=== PATIENT | female | born 1945 | race Caucasian/White ===

== ENCOUNTER 2017-07-11 15:52 | Inpatient (IN) ==
[2017-07-11] MEDS ORDERED: *HR* Adenosine 6 MG/2 ML VIAL IVP ONE ×2 (16:00→17:24)
[2017-07-11] MEDS ORDERED: Aspirin 325 MG TABLET PO ONE (16:00)
[2017-07-11] MEDS ORDERED: 0.9 % Sodium Chloride 1,000 ML ONE (16:06)
[2017-07-11 17:03] LABS: Basophils % 0.4 %; Eosinophils # 0.1 K/mcL (0.0-0.6); Eosinophils % 1.2 %; Hematocrit 48.2 % (35.3-44.9); Hemoglobin 15.1 g/dL (11.5-15.4); Immature Granulocytes % 0.2 % (0-4); Lymphocytes # 2.6 K/mcL (0.6-4.6); Lymphocytes % 29.1 %; Mean Corpuscular HGB Conc 31.3 g/dL (31.6-35.5); Mean Corpuscular Hemoglobin 26.7 pg (28.0-33.3); Mean Corpuscular Volume 85.2 fL (83.0-100.0); Monocytes # 0.8 K/mcL (0.0-1.3); Monocytes % 8.3 %; Neutrophils # 5.5 K/mcL (1.6-8.9); Platelet Count 208 K/mcL (140-400); Red Blood Count 5.66 M/mcL (3.82-4.97); Red Cell Distribution Width 14.4 % (11.5-14.5); Segmented Neutrophils % 60.8 %
[2017-07-11 17:07] LABS: INR 3.9
[2017-07-11 17:10] LABS: Activated Partial Thrombo Time 48.3 Seconds (26.0-36.0)
[2017-07-11 17:13] LABS: Prothrombin Time 44.1 Seconds (9.4-12.1)
[2017-07-11 17:17] LABS: BUN/Creatinine Ratio 13 (6-26); Blood Urea Nitrogen 13 mg/dL (7-20); Carbon Dioxide 20 mEq/L (19-29); Chloride 108 mEq/L (98-109); Glucose 89 mg/dL (70-99); Magnesium 1.7 mg/dL (1.6-2.6); Osmolality,Calculated 292 (280-300); Potassium 3.8 mEq/L (3.5-4.5); Sodium 141 mEq/L (136-145); eGFR For African Americans > 60 (> 60); eGFR For Non-African Americans 56 (> 60)
--- NOTE | 2017-07-11 17:39 | Emergency Department Note ---
Disposition Clinical Impression: Palpitations Atrial flutter Qualifiers: Atrial flutter type: typical Qualified Code(s): I48.3 - Typical atrial flutter Disposition: Admitted As Inpatient Condition: Good Forms: ED Satisfaction Letter Time of Disposition: 17:49 Arrhythmia/Palpitations HPI - General Chief Complaint: ED Arrhythmia/Palpitations Stated Complaint: afib Time Seen by Provider: 07/11/17 15:59 Source: EMS Limitations: no limitations Nursing Notes Reviewed: Yes Vital Signs Reviewed: Yes - History of Present Illness HPI Narrative: Patient presents her primary care office today for evaluation of tachycardia. They did an EKG later today for screening evaluation recommended she come to the emergency room. Onset (ago): Just LEADITE MAN Duration: constant Severity: moderate Context: occurred during rest Arrhythmia History: atrial fibrillation, SVT, on anti-coagulants, history of ablation, history of electrical cardioversion, prior evaluation Associated symptoms: Reports: denies other symptoms Treatments prior to arrival: vagal maneuvers - Related Data Home Medications Medication Instructions Recorded Confirmed Aspirin [Lo-Dose Aspirin EC] 81 mg PO DAILY 05/16/17 05/16/17 Cholecalciferol (Vitamin D3) 2,000 unit PO DAILY 05/16/17 05/16/17 [Vitamin D] Lisinopril [Zestril] 20 mg PO DAILY 05/16/17 05/16/17 Magnesium Oxide [Magnesium] 500 mg PO DAILY 05/16/17 05/16/17 Multivitamin [Multivitamins] 1 tab PO DAILY 05/16/17 05/16/17 Simvastatin [Zocor] 20 mg PO HS 05/16/17 05/16/17 Warfarin Sodium [Coumadin] 6 mg PO SUMOWEFR 07/11/17 07/11/17 Warfarin [Coumadin] 4 mg PO TUTHSA 07/11/17 07/11/17 Allergies Allergy/AdvReac Type Severity Reaction Status Date / Time codeine AdvReac Flushing Verified 07/11/17 16:37 All systems ED: reviewed and negative except as stated. Review of Systems: As Per HPI Constitutional: Denies: fever, chills Cardiovascular: Reports: palpitations. Denies: chest pain, dyspnea on exertion , orthopnea, edema Respiratory: Denies: cough, dyspnea Gastrointestinal: Denies: abdominal pain, nausea, vomiting, diarrhea Genitourinary: Denies: urgency, dysuria Musculoskeletal: Denies: back pain, neck pain Neurological: Denies: headache Psychiatric: Denies: anxiety, depression Allergic/Immunologic: Denies: facial swelling Past Medical History - Past Medical History Attestation: Yes The following information was validated with the patient. Source: patient Medical history: Reports: atrial fibrillation, DVT, hyperlipidemia, hypertension Psychiatric history: Reports: no psych history - Social History Smoking Status: Never smoker Smokeless Tobacco Status: No Alcohol use: Reports: none Drug use: Reports: none Physical Exam - General General appearance: alert, in no apparent distress - Head Head exam: atraumatic, normocephalic, normal inspection - Neck Neck exam: Present: normal inspection, full ROM, trachea midline - Chest Chest inspection: Present: normal inspection, symmetric chest wall rise - Respiratory Respiratory exam: Present: normal lung sounds bilaterally. Absent: respiratory distress, wheezes, accessory muscle use - Cardiovascular Cardiovascular exam: Present: normal rhythm, tachycardia, normal heart sounds - Abdominal Exam Abdominal exam: Present: soft, Non-Tender, normal bowel sounds. Absent: tenderness, distention, guarding, rebound, rigidity, Lucio's sign, Rovsing's sign, tenderness at McBurney's Point - Extremities Exam Extremities exam: Present: normal inspection, full ROM, normal capillary refill. Absent: tenderness, pedal edema - Back Exam Back exam: Present: normal inspection - Neurological Exam Neurological exam: Present: alert, oriented X3, CN II-XII intact, normal gait - Skin Skin exam: Present: warm, dry, intact, normal color Course Course Narrative: Patient seen and examined the time of arrival by EMS. See history of present illness. Very pleasant 72-year-old female presents emergency room for primary care provider's office today for evaluation of palpitations. Denied any other symptoms leading up to today's events. She was seen there for just a basic outpatient evaluation. She has a history of walking Parkinson White, atrial fibrillation, she also has had open heart surgery as well as an ring placed in the heart around one of the valves. She is on Coumadin. Her most recent INR was 3.32 days ago. Patient denies any chest pain shortness of breath headache vision changes nausea vomiting or diarrhea. Denies fevers chills at this time. She has not had any recent trauma or medication changes. Denies any other symptoms on presentation here. Physical exam patient is resting comfortably in the bed no distress lungs are clear heart is tachycardic but regular. Abdomen is soft nontender nondistended no guarding or rigidity no peritoneal symptoms. IV access was obtained by EMS. Immediate EKG was collected and reviewed compared to the EKG from primary care provider's office. The rhythm itself appears to be SVT at this time based on normal morphology with what looks like regular rhythm. Patient is set up to do adenosine. Single IV obtained in the left upper extremity. 6 mg of adenosine and then 12 proportion. There is appropriate responsible time the patient became immediately tachycardic echo after the event. The rhythm looked like sinus rhythm as an underlying pathology after the pause was noted. Labs including coagulation studies CBC electrolytes are ordered at this time. Patient is hemodynamically stable showing no acute signs of decompensation. Single dose of 10 mg of IV Cardizem were given by bolus. Patient's rate converted within 30 seconds again the medication. Her new rate is in the 80s. It appears to be a flutter. Patient is Misha anticoagulated. Disposition pending laboratory workup and chest x- ray. Patient will most likely need admission for definitive evaluation and management. We will continue to monitor until admission process is completed. - Reevaluation(s) Reevaluation #1: Since INR is significantly elevated at 3.9. Otherwise rest of her laboratory workup was completely benign. We will monitor here as consultations placed at the hospitals. Patient does follow up with Dr. Ceja the vice president planning. No need for serial consultation replaced at this time. Rhythm is controlled. Cardizem drip ordered at this time as needed but currently she is stayed with a normal rhythm after the single bolus of Cardizem was given. There is no need for anticoagulation this time considering her INR is 3.9. We will continue to monitor him into the admission process is completed Time: 17:46 Reevaluation #2: Patient discussed with the hospitalist Dr. viveros. Review the presentation symptoms medical history in detail. Initially thought to the patient said that she had both compartments and white but she does not. Patient responded to Cardizem appropriately. Patient is otherwise stable. Will be admitted at this time for evaluation. No other recommendations this time except to hold on a Cardizem drip until her evaluated. Time: 18:11 Vital Signs Pulse Rate 168 07/11/17 16:35 Respiratory Rate 16 07/11/17 16:35 Blood Pressure 157/92 07/11/17 16:35 O2 Sat by Pulse Oximetry 98 07/11/17 16:35 Temperature 98 F 07/11/17 16:36 Pulse Rate 78 07/11/17 16:59 Respiratory Rate 16 07/11/17 16:59 Blood Pressure 165/88 07/11/17 16:59 O2 Sat by Pulse Oximetry 99 07/11/17 16:59 Arrhythmia/Palpitations - [facility] Narrative Medical decision making narrative: A flutter, supraventricular tachycardia, cardiac arrhythmia - Medical Records Medical records reviewed: Yes I reviewed the patient's medical records. - Lab Data Lab results reviewed: Yes I reviewed the patient's lab results. Result diagrams: 07/11/17 16:51 07/11/17 16:51 Lab Results 07/11/17 07/11/17 07/11/17 Range/Units 16:51 16:51 16:51 WBC 9.0 (4.3-11.1) K/mcL RBC 5.66 H (3.82-4.97) M/mcL Hgb 15.1 (11.5-15.4) g/dL Hct 48.2 H (35.3-44.9) % MCV 85.2 (83.0-100.0) fL MCH 26.7 L (28.0-33.3) pg MCHC 31.3 L (31.6-35.5) g/dL RDW 14.4 (11.5-14.5) % Plt Count 208 (140-400) K/mcL MPV 11.0 (9.4-12.4) fL Immature Gran % 0.2 (0-4) % Seg Neutrophils % 60.8 % Lymphocytes % 29.1 % Monocytes % 8.3 % Eosinophils % 1.2 % Basophils % 0.4 % Neutrophils # 5.5 (1.6-8.9) K/mcL Lymphocytes # 2.6 (0.6-4.6) K/mcL Monocytes # 0.8 (0.0-1.3) K/mcL Eosinophils # 0.1 (0.0-0.6) K/mcL Basophils # 0.0 (0.0-0.2) K/mcL PT 44.1 H* (9.4-12.1) Seconds INR 3.9 APTT 48.3 H (26.0-36.0) Seconds Sodium 141 (136-145) mEq/L Potassium 3.8 (3.5-4.5) mEq/L Chloride 108 (98-109) mEq/L Carbon Dioxide 20 (19-29) mEq/L BUN 13 (7-20) mg/dL Creatinine 0.98 (0.57-1.11) mg/dL Est GFR ( Amer) > 60 (> 60) Est GFR (Non-Af Amer) 56 L (> 60) BUN/Creatinine Ratio 13 (6-26) Glucose 89 (70-99) mg/dL Calculated Osmolality 292 (280-300) Calcium 10.0 (8.6-10.8) mg/dL Magnesium 1.7 (1.6-2.6) mg/dL Troponin I (0-0.03) ng/mL TSH 1.541 (0.350-4.840) mcIU/mL 07/11/17 Range/Units 16:51 WBC (4.3-11.1) K/mcL RBC (3.82-4.97) M/mcL Hgb (11.5-15.4) g/dL Hct (35.3-44.9) % MCV (83.0-100.0) fL MCH (28.0-33.3) pg MCHC (31.6-35.5) g/dL RDW (11.5-14.5) % Plt Count (140-400) K/mcL MPV (9.4-12.4) fL Immature Gran % (0-4) % Seg Neutrophils % % Lymphocytes % % Monocytes % % Eosinophils % % Basophils % % Neutrophils # (1.6-8.9) K/mcL Lymphocytes # (0.6-4.6) K/mcL Monocytes # (0.0-1.3) K/mcL Eosinophils # (0.0-0.6) K/mcL Basophils # (0.0-0.2) K/mcL PT (9.4-12.1) Seconds INR APTT (26.0-36.0) Seconds Sodium (136-145) mEq/L Potassium (3.5-4.5) mEq/L Chloride (98-109) mEq/L Carbon Dioxide (19-29) mEq/L BUN (7-20) mg/dL Creatinine (0.57-1.11) mg/dL Est GFR ( Amer) (> 60) Est GFR (Non-Af Amer) (> 60) BUN/Creatinine Ratio (6-26) Glucose (70-99) mg/dL Calculated Osmolality (280-300) Calcium (8.6-10.8) mg/dL Magnesium (1.6-2.6) mg/dL Troponin I 0.00 (0-0.03) ng/mL TSH (0.350-4.840) mcIU/mL - Radiology Data Radiology results reviewed: Yes I reviewed the patient's radiology results. Chest x-ray still shows no acute pathology - EKG Data EKG attestation: Yes I reviewed and interpreted this EKG. Rhythm: SVT [place]/QRS: normal When compared to previous EKG there are: changes noted Interpretation: other (Repeat EKG completed after Cardizem shows a flutter with 3-1 conduction) Critical Care Time Critical Care Time: Yes Total Critical Care Time: 45 Attestation: Critical care performed: Time is exclusive of separately billable procedures. Time includes: direct patient care, patient reassessment, coordination of patient care, interpretation of data (laboratory data, radiology data, and respiratory data), review of patient's medical records, medical consultation and documentation of patient care. Procedures included in critical care time: Procedures excluded from critical care time:
[2017-07-11 17:42] LABS: Thyroid Stimulating Hormone 1.541 mcIU/mL (0.350-4.840)
[2017-07-11 18:15] LABS: Bilirubin,Urine Negative (Negative); Blood,Urine Negative (Negative); Clarity,Urine Clear (Clear); Color,Urine Yellow (Yellow); Glucose,Urine (UA) Normal (Normal); Ketones,Urine Trace mg/dL (Negative); Leukocyte Esterase,Urine Trace (Negative); Nitrite,Urine Negative (Negative); PH,Urine 6.5 pH Units (5.0-8.0); Protein,Urine Negative (Neg-Trace); Specific Gravity,Urine 1.009 (1.010-1.025); Urobilinogen,Urine Normal (Normal)
[2017-07-11 18:18] LABS: Bacteria,Urine None Seen per hpf (None-Few); Hyaline Casts,Urine None Seen per lpf (None-Few); RBC,Urine 0-3 per hpf (0-3); Squamous Epithelial Cell,Urine None Seen per lpf (None-Few); WBC,Urine 0-3 per hpf (0-3)
[2017-07-11] MEDS ORDERED: Acetaminophen 325 MG TABLET PO PRN (20:04)
--- NOTE | 2017-07-11 20:04 | Internal Med History&Physical ---
<Cintia Dean - Last Filed: 07/11/17 20:42> Date of Encounter: 07/11/17 Time of Encounter: 19:20 Assessment and Plan (1) Atrial flutter with rapid ventricular response Current visit: Yes Status: Acute - Initial EKG in ED showed regular SVT at rate of 168. - The EKG after first dose of adenosine showed atrial flutter at rate of 83. - Known PMH of atypical atrial flutter s/p intraop ablation 07/2014 and atrial fibrillation s/p 3 cardioversions currently on Coumadin. 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 - Hemodynamically stable with HR of 80s at this time. - Discontinue Cardizem drip. - Start Cardizem 10 mg IV q6H prn HR > 120. - Obtain echocardiogram for further evaluation. - Will consult cardiology and appreciate further evaluation and recommendation. - Continue to monitor with telemetry. (2) Supratherapeutic INR Current visit: Yes Status: Acute - INR 3.9 on admission. - On Coumadin at home for A-flutter/A-fib. Will hold Coumadin for now. - Continue to monitor INR. (3) Hypertension Current visit: Yes Status: Chronic - Continue home dose lisinopril. Qualifiers: Hypertension type: essential hypertension Qualified Code(s): I10 - Essential (primary) hypertension (4) Hyperlipidemia Current visit: Yes Status: Chronic - Continue home statin. 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 - S/p IVC filter placed in 2013. - On Coumadin at home. INR 3.9 on admission. Will hold Coumadin for now. Internal Medicine - H&P: HPI Chief complaint: Palpitation Admitted From: Emergency Dept Plans for Post Hospital Care: Home History of present illness: Ms. 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 Patient was sent from her PCP Dr. Cameron's office to [place] ED for tachycardia at rate of 160. Patient reports having intermittent palpitation at left later chest/flank since May. It 's associated with some shortness of breath and lightheadedness but no chest pain/discomfort, syncope, edema. Patient denies nausea, vomiting, diarrhea, abdominal pain, dysuria, fever. Patient takes aspirin, simvastatin and lisinopril at home and denies taking any thyroid supplement. Patient is not on any BB or CCB at home and per patient, her old aircraft mechanic structures at [place] weaned her off from those rate-control medications. Patient's current aircraft mechanic structures is Dr. Ceja and she has scheduled appointment with him tomorrow. Patient is full code. EKG in ED showed regular SVT at rate of 168. Per ED note, patient has appropriate response after receiving adenosine 6 mg and 12 mg. Patient also received one dose of Cardizem 10 mg IV bolus and patient remains hemodynamically stable with rate of 80s since. Cardizem drip was ordered in ED and never given as patient's heart rate stays at 80s. Patient was also noted to have INR 3.9. Past Med Surg Social Fam HX - Past Medical History Source: patient, old records reviewed Medical history: atrial fibrillation, DVT, hyperlipidemia, hypertension Psychiatric history: no psych history - Past Surgical History Surgical History: orthopedic, other (Left foot surgery), other (mitral valve repair with annuloplasty and OLESYA ligation), IVC filter - Social History Smoking Status: Never smoker Smokeless Tobacco Status: No Alcohol use: none Drug use: none - Family History Father Living Status: Age at : 86 Hx Family Cardiac Disorders: Yes (Heart disease) Mother Living Status: Age at : 60 Hx Family Cancer: Yes (Colon cancer) Sister Hx Family Cancer: Yes (Cervical cancer) Brother Hx Family Cancer: Yes (Colon cancer) Internal Medicine - H&P: Meds Aspirin [Lo-Dose Aspirin EC] 81 mg PO DAILY 05/16/17 [History] Cholecalciferol (Vitamin D3) [Vitamin D] 2,000 unit PO DAILY 05/16/17 [History] Lisinopril [Zestril] 20 mg PO DAILY 05/16/17 [History] Magnesium Oxide [Magnesium] 500 mg PO DAILY 05/16/17 [History] Multivitamin [Multivitamins] 1 tab PO 3XW 05/16/17 [History] Simvastatin [Zocor] 20 mg PO HS 05/16/17 [History] Warfarin Sodium [Coumadin] 6 mg PO SUMOWEFR 07/11/17 [History] Warfarin [Coumadin] 4 mg PO TUTHSA 07/11/17 [History] Allergies codeine Adverse Reaction (Verified 07/11/17 16:37) Flushing All Systems PM: A 10-system review of systems was performed and is negative for pertinent findings except as documented above in the HPI. - Constitutional Constitutional: weight loss (3 lb since May), no anorexia, no fever(s) - EENT Eyes: no change in vision Ears: no decreased hearing Nose, mouth and throat: no dysphagia, no odynophagia - Cardiovascular Cardiovascular ROS IM: as per HPI, lightheadedness, palpitations, no chest pain , no edema, no syncope - Respiratory Respiratory: cough (with clear sputum), no dyspnea, no hemoptysis, no change in phlegm color - Gastrointestinal Gastrointestinal: no abdominal pain, no diarrhea, no hematochezia, no melena, no nausea, no vomiting - Genitourinary Genitourinary: no difficulty urinating, no dysuria, no hematuria - Musculoskeletal Musculoskeletal ROS IM: no arthralgias, no myalgias - Integumentary Integumentary IM: no pruritus, no rash - Neurological Neurological ROS: no focal weakness, no numbness, no tingling - Hematologic/Lymphatic Hematologic/Lymphatic: no easy bleeding, no easy bruising - Constitutional Vitals: Temp Pulse Resp BP Pulse Ox 98 F 78 16 148/90 99 07/11/17 16:36 07/11/17 16:59 07/11/17 19:40 07/11/17 19:40 07/11/17 16:59 General appearance: Present: cooperative, A&O X 3, no acute distress, answers questions appropriately - Head Head exam: Present: atraumatic, normocephalic - Eye Eye exam: Present: EOMI, PERRL, conjuntiva pink, sclera anicteric - Neck Neck exam general surgery: Present: supple, trachea midline. Absent: lymphadenopathy - Respiratory Respiratory exam: Present: CTAB. Absent: accessory muscle use, rales, rhonchi, wheezes - Cardiovascular Cardiovascular exam: Present: RRR, +S1, +S2. Absent: diastolic murmur, gallop, rubs, systolic murmur - GI/Abdominal GI/Abdominal exam: Present: normal bowel sounds, soft, no peritoneal signs. Absent: distended, tenderness - Extremities Exam Extremities exam: Present: warm, radial pulses palpable and symmetrical. Absent : calf tenderness, cyanotic, pedal edema - Neurological Exam Neurological exam: Present: CN II-XII intact, oriented X3, no focal deficits. Absent: pronater drift, facial droop, speech deficit - Skin Skin exam: Present: dry, intact, warm Internal Med - H&P Results - Labs CBC & Chem 7: 07/11/17 16:51 07/11/17 16:51 - EKG Data -: EKG Interpreted by Myself (Regular SVT HR 168 on initial EKG. A-flutter HR 83 after 1st dose adenosine) <Seth Kim - Last Filed: 07/11/17 23:34> Date of Encounter: 07/11/17 Internal Medicine - H&P: HPI History of present illness: Ms. Alvarenga is a 72 year old female All Systems PM: A 10-system review of systems was performed and is negative for pertinent findings except as documented above in the HPI. - Constitutional Vitals: Temp Pulse Resp BP Pulse Ox 97.7 F 84 13 162/97 97 07/11/17 21:36 07/11/17 22:24 07/11/17 21:36 07/11/17 21:36 07/11/17 21:36 Internal Med - H&P Results - Labs CBC & Chem 7: 07/11/17 16:51 07/11/17 16:51 - Attending Attestation I examined this patient and my medical decision-making was reviewed with the Resident Physician, Dr Cintia Dean. I agree with the documented findings, disposition and treatment plan as described except to the extent set forth below. My findings are summarized below: Patient presented to the hospital with palpitations. On exam she is in no acute distress. Heart is regular with normal S1 and S2 and a 3/6 systolic murmur best heard at the apex as well as a faint low pitched diastolic murmur. Lungs are clear. Extremities have no edema. Telemetry review currently shows atrial flutter with ventricular rate of 84. Plan: Monitor on telemetry, consult cardiology, continue IV diltiazem as needed for tachycardia. Currently patient is rate controlled and asymptomatic.
[2017-07-11] MEDS ORDERED: Lisinopril 20 MG TABLET PO ONE (22:09)
[2017-07-12 05:59] LABS: INR 3.5; Prothrombin Time 39.7 Seconds (9.4-12.1)
[2017-07-12 06:01] LABS: Hematocrit 43.4 % (35.3-44.9); Hemoglobin 13.7 g/dL (11.5-15.4); Mean Corpuscular HGB Conc 31.6 g/dL (31.6-35.5); Mean Corpuscular Hemoglobin 26.8 pg (28.0-33.3); Mean Corpuscular Volume 84.9 fL (83.0-100.0); Mean Platelet Volume 11.5 fL (9.4-12.4); Platelet Count 174 K/mcL (140-400); Red Blood Count 5.11 M/mcL (3.82-4.97); Red Cell Distribution Width 14.6 % (11.5-14.5)
[2017-07-12 06:09] LABS: BUN/Creatinine Ratio 12 (6-26); Blood Urea Nitrogen 10 mg/dL (7-20); Carbon Dioxide 22 mEq/L (19-29); Chloride 109 mEq/L (98-109); Glucose 89 mg/dL (70-99); Osmolality,Calculated 287 (280-300); Potassium 3.8 mEq/L (3.5-4.5); Sodium 139 mEq/L (136-145); eGFR For African Americans > 60 (> 60); eGFR For Non-African Americans > 60 (> 60)
--- NOTE | 2017-07-12 09:30 | Cardiology Consult Note ---
<Frederick Jacobs - Last Filed: 07/12/17 12:40> Date of Encounter: 07/12/17 Time of Encounter: 09:28 Assessment and Plan (1) Atrial flutter Current Visit: Yes Status: Acute EKG currently shows her to be in atrial flutter. This is common for people to go into after an ablation. She has a very extensive arrhythmia history with left lateral WPW, a fib and atypical a flutter. She is no longer in SVT after the adenosine in the ED was given and the cardizem push dose did help her a fib to be rate controlled and caused her to be changed into an a flutter rhythm. She is supratherapeutic on her warfarin so continue holding her coumadin to get her therapeutic and recommend followup with the coumadin clinic to get that back to a therapeutic level. She has been therapeutic or supratherapeutic for the last 30 days after chart review. Old EKG's were obtained and she looks to be in NSR back in May of 2016, so she is normally in a sinus rhythm. But in the past when seen in [place] she had persistent a. flutter after all her ablations and looked to be weened off of all he antiarythmics. Echo showed Decreased EF of 30% when last one in 2016 was 40-45%. There also was severe MR which was mild in 2016. 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 At 1100 Pt got up to go to the restroom had became tachycardic and back into SVT where 10mg of Cardizem were given and she is now rate controlled at 80bpm We spoke with her more about being cardioverted and she was very reluctant to have it done and wanted to try medical management first. We are going to consult EP for her. After looking at old records she has been on Cardizem, Flecanide, Amiodarone, and possibly sotalol. So with that history we feel it's best to get EP on board. (2) History of mitral valve repair Current Visit: Yes Status: Chronic Continue holding the Warfarin as she is supratherapeutic. Will review her echo to be sure there is no MR or dysfunction in the valve. (3) Hyperlipidemia Current Visit: Yes Status: Chronic Continue statin treatment. (4) Hypertension Current Visit: Yes Status: Chronic She is slightly hypertensive today. We recommend increasing her lisinopril dose and f/u with PCP to be sure her bp normalizes. Discussion w patient/family: The assessment and plan as outlined above was discussed with the patient and/or family members who expressed understanding and agreement. All questions were answered. Thank you for involving us in the care of your patient. Please call with any questions. History of Present Illness Consult date: 07/12/17 Requesting physician: Cintia Dean Consult reason: A Flutter after Adenosine conversion from SVT Chief complaint: Palpitations History of present illness: Ms. 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 She is anticoagulated with coumadin and recently has been supratherapeutic. She is seen by Dr. Ceja for Cardiology. She had a normal doctor's appointment with her PCP yesterday when they noticed she had a fast heart rate. They did an EKG which shows SVT so they transferred her to the ED. There she was in SVT and was give 6 and 12mg doses of Adenosine where she converted to Sinus rhythm then intro atrial fibrillation with RVR she was then given push dose cardizem once which caused her to be rate controlled in atrial flutter. She stated for the last few months she has had a palpation feeling in her left flank that all began since a hammer toe surgery in May. But she said they were more of a nuisance than a true pain. When talking with her today she states she has had no pain and the palpitations are gone. She said she has not had any other symptoms of chest pain, SOB, Nausea, vomiting, swelling, fevers. She cannot think of anything that has changed in her daily routine that could have caused this. She states that she feels just fine she believes that her normal rhythm she is in is a sinus rhythm. She had a scheduled appointment with Dr. Ceja for today. Past Med Surg Social Fam HX - Past Medical History Medical history: atrial fibrillation, DVT, hyperlipidemia, hypertension Psychiatric history: no psych history - Past Surgical History Surgical History: orthopedic, other, other, IVC filter - Social History Smoking Status: Never smoker Smokeless Tobacco Status: No Alcohol use: none Drug use: none - Family History Father Living Status: Age at : 86 Hx Family Cardiac Disorders: Yes (Heart disease) Mother Living Status: Age at : 60 Hx Family Cancer: Yes (Colon cancer) Sister Hx Family Cancer: Yes (Cervical cancer) Brother Hx Family Cancer: Yes (Colon cancer) Medications and Allergies Aspirin [Lo-Dose Aspirin EC] 81 mg PO DAILY 05/16/17 [History] Cholecalciferol (Vitamin D3) [Vitamin D] 2,000 unit PO DAILY 05/16/17 [History] Lisinopril [Zestril] 20 mg PO DAILY 05/16/17 [History] Magnesium Oxide [Magnesium] 500 mg PO DAILY 05/16/17 [History] Multivitamin [Multivitamins] 1 tab PO 3XW 05/16/17 [History] Simvastatin [Zocor] 20 mg PO HS 05/16/17 [History] Warfarin Sodium [Coumadin] 6 mg PO SUMOWEFR 07/11/17 [History] Warfarin [Coumadin] 4 mg PO TUTHSA 07/11/17 [History] Allergies codeine Adverse Reaction (Verified 07/11/17 16:37) Flushing All Systems Review: A 10-system review of systems was performed and is negative for pertinent findings except as documented above in the HPI. - Constitutional Constitutional: no anorexia, no chills, no daytime sleepiness, no fatigue, no fever(s), no frequent falls, no headache(s), no lethargy, no malaise, no night sweats, no snoring, no stops breathing during sleep, no weakness, no weight gain , no weight loss - EENT Eyes: no blurred vision, no loss of vision, no pain Nose, mouth and throat: no bleeding gums, no dysphagia, no epistaxis, no mouth pain, no odynophagia, no sinus pain, no sore throat, no throat swelling - Cardiovascular Cardiovascular: palpitations (minor in the left flank), no chest pain at rest, no chest pain with exertion, no claudication, no diaphoresis, no dyspnea at rest , no dyspnea on exertion, no irregular heart rhythm, no radiating jaw, neck or arm pain, no leg edema, no lightheadedness, no orthopnea, no paroxysmal nocturnal dyspnea, no rapid heart rate, no slow heart rate, no syncope - Respiratory Respiratory: no cough, no dyspnea, no hemoptysis, no wheezing - Gastrointestinal Gastrointestinal: no abdominal pain, no coffee ground emesis, no constipation, no diarrhea, no dysphagia, no hematemesis, no nausea - Genitourinary Genitourinary: no dysuria, no hematuria, no nocturia - Musculoskeletal Musculoskeletal: no abnormal gait, no arthralgias, no back pain, no muscle weakness - Integumentary Integumentary: no erythema, no rash - Neurological Neurological: no abnormal speech, no dizziness, no focal weakness, no memory loss, no numbness, no syncope, no tingling - Psychiatric Psychiatric: no anxiety, no depression - Hematological/Lymphatic Hematologic/Lymphatic: easy bleeding, easy bruising Physical Examination Vital Signs, Last 4 Hours Temp Pulse Resp BP Pulse Ox 07/12/17 07:35 98.1 F 80 16 158/101 98 General: Conversant, No Apparent Distress HEENT: Atraumatic, Normocephaly, Mucus Membranes Moist Neck: No JVD, Normal carotid pulses Cardiac: Reg Rate and Rhythm, Normal S1 and S2, Other (Diastolic 3/6 murmur heard at the apex) Lungs: Normal Breath Sounds, No Wheeze, Rales, Rhonchi Neuro: Alert and responsive, No focal deficits noted Abdomen: Soft, Non-Tender Skin: No rashes noted on visualized skin Musculoskeletal: No Chest Wall Tenderness Extremities: No Clubbing, No Cyanosis, No Edema, Normal Pulses Results 07/12/17 04:58 07/12/17 04:58 Lab Results 07/12/17 07/12/17 07/12/17 04:58 04:58 04:58 WBC 6.7 Hgb 13.7 Hct 43.4 Plt Count 174 INR 3.5 APTT 44.0 H Sodium 139 Potassium 3.8 Chloride 109 Carbon Dioxide 22 BUN 10 Creatinine 0.86 Glucose 89 Calcium 9.0 - Imaging and Cardiology Chest Xray: report reviewed, image reviewed Echo: report reviewed - EKG Interpretation EKG results cardiology: personally reviewed, no diagnostic ischemia, other ( Atrial flutter at rate of 80bpm.) Consult Discharge Plan - Plan Referrals: Wade Ceja MD [Partnered Physician] - (Cardiology will call patient at home with appointment.) Romero Cameron MD [Partnered Physician] - 07/19/17 8:30 am <Daphne Torres - Last Filed: 07/12/17 13:11> Date of Encounter: 07/12/17 Assessment and Plan Discussion w patient/family: The assessment and plan as outlined above was discussed with the patient and/or family members who expressed understanding and agreement. All questions were answered. Thank you for involving us in the care of your patient. Please call with any questions. History of Present Illness History of present illness: Ms. Alvarenga is a 72 year old female All Systems Review: A 10-system review of systems was performed and is negative for pertinent findings except as documented above in the HPI. Physical Examination Vital Signs, Last 4 Hours Temp Pulse Resp BP Pulse Ox 07/12/17 11:19 98.0 F 84 16 156/108 95 Results 07/12/17 04:58 07/12/17 04:58 - Attending Attestation I examined this patient and my medical decision-making was reviewed with the Resident Physician. I agree with the documented findings, disposition and treatment plan. Ms. Alvarenga was sent to the hospital from her PCPs office for tachycardia, HR 160's. At the bedside, the patient states she feels asymptomatic. She has a complicated past cardiac history. She recently established with the outpatient cardiology office documenting history of mitral valve repair and annuloplasty with OLESYA ligation in 2013. She also has history of atrial flutter ablation, WPW ablation and multiple cardioversions. It appears she may also have been on antiarrhythmics in the past as well. Given this history, we've recommend an EP evaluation. Her ECGs on presentation probably represent atrial flutter. Appears she may also be having episodes of atrial fibrillation. Otherwise, her EF is now 30%, probably tachycardia induced. Will await further recommendations from EP service. She is anticoagulated with coumadin. In regards to her mitral valve, it could not be well evaluated on the echo. Once heart rates are controlled, recommend repeat echo for further evaluation.
[2017-07-12] MEDS: Lisinopril 20 MG TABLET PO SCH (10:58)
[2017-07-12] MEDS: Aspirin Enteric Coated 81 MG Tablet PO SCH (10:58)
--- NOTE | 2017-07-12 11:07 | Internal Med Progress Note ---
Date of Encounter: 07/12/17 Time of Encounter: 11:05 - Assessment and plan (1) Atrial flutter with rapid ventricular response Current Visit: Yes Status: Acute Assessment and plan: Pt does have significant arrhythmia history with s/p cardiac ablation x 3 It looks like she may need cardioversion now but pt wanted to try medical cardioversion as much as possible Cardiology on board waiting on 2 D Echo results - if pt does not have any systolic dysfunction will start her on cardizem gtt She definitely EPS studies.. Dr. Baeza will be consulted cont Coumadin for anticoagulation Mean while will start her on Metoprolol 25mg PO BID Patient does need to stay in the hospital more than 2 midnights due to her complex medical problem and may require further surgical interventions. So we will change her to full admission today. I did review my colleague's H & P including HPI, PMH, PSH, FH, SH, and ROS no changes noticed (2) Atrial arrhythmia Current Visit: Yes Status: Acute (3) H/O radiofrequency ablation for complex left atrial arrhythmia Current Visit: Yes Status: Acute (4) Hypertension Current Visit: Yes Status: Chronic Assessment and plan: stable cont home med Lisinopril also added Metoprolol Qualifiers: Hypertension type: essential hypertension Qualified Code(s): I10 - Essential (primary) hypertension (5) History of mitral valve repair Current Visit: Yes Status: Chronic Assessment and plan: Cont coumadin for anticoag (6) History of DVT (deep vein thrombosis) Current Visit: Yes Status: Chronic Assessment and plan: on Coumadin (7) Hyperlipidemia Current Visit: Yes Status: Chronic Assessment and plan: on statin Qualifiers: Hyperlipidemia type: unspecified Qualified Code(s): E78.5 - Hyperlipidemia , unspecified - Subjective Interval history: Ms. 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 Patient was sent from her PCP Dr. Cameron's office to [place] ED for tachycardia at rate of 160. Patient reports having intermittent palpitation at left later chest/flank since May. It 's associated with some shortness of breath and lightheadedness but no chest pain/discomfort, syncope, edema. Patient denies nausea, vomiting, diarrhea, abdominal pain, dysuria, fever. Patient takes aspirin, simvastatin and lisinopril at home and denies taking any thyroid supplement. Patient is not on any BB or CCB at home and per patient, her old fish net maker at [place] weaned her off from those rate-control medications. Patient's current fish net maker is Dr. Ceja and she has scheduled appointment with him tomorrow. Patient is full code. EKG in ED showed regular SVT at rate of 168. Per ED note, patient has appropriate response after receiving adenosine 6 mg and 12 mg. Patient also received one dose of Cardizem 10 mg IV bolus and patient remains hemodynamically stable with rate of 80s since. Cardizem drip was ordered in ED and never given as patient's heart rate stays at 80s. Patient was also noted to have INR 3.9. Pt was admitted to PCU last night. She was in atrial flutter but rate controlled till now. Suddenly few minutes ago after she came back from rest room she went into RVR again with HR in 170's. Pt denied any CP / SOB. She is comfortably resting in bed - Constitutional Vitals: Temp Pulse Resp BP Pulse Ox 98.1 F 80 16 158/101 98 07/12/17 07:35 07/12/17 07:35 07/12/17 07:35 07/12/17 07:35 07/12/17 07:35 General appearance: Present: cooperative, A&O X 3, no acute distress, answers questions appropriately - Head Head exam: Present: atraumatic, normal inspection - Respiratory Respiratory exam: Present: decreased breath sounds, wheezes. Absent: rales, respiratory distress, rhonchi - Cardiovascular Cardiovascular exam: Present: irregular rhythm, +S1, +S2. Absent: gallop - GI/Abdominal GI/Abdominal exam: Present: soft. Absent: distended, rebound, rigid, tenderness - Extremities Exam Extremities exam: Present: pedal edema. Absent: calf tenderness, tenderness - Neurological Exam Neurological exam: Present: alert, oriented X3 - Psychiatric Psychiatric exam: Present: normal affect, normal mood Internal Medicine: Result - Labs CBC & Chem 7: 07/12/17 04:58 07/12/17 04:58 Labs: Short CBC 07/12/17 Range/Units 04:58 WBC 6.7 (4.3-11.1) K/mcL Hgb 13.7 (11.5-15.4) g/dL Hct 43.4 (35.3-44.9) % Plt Count 174 (140-400) K/mcL BMP 07/12/17 04:58 Sodium 139 Potassium 3.8 Chloride 109 Carbon Dioxide 22 BUN 10 Creatinine 0.86 Glucose 89 Calcium 9.0 - ABG Interpretation ABG results: PT/INR, D-dimer PT 39.7 Seconds (9.4-12.1) H 07/12/17 04:58 Consult Discharge Plan - Plan Referrals: Wade Ceja MD [Partnered Physician] - (Cardiology will call patient at home with appointment.) Romero Cameron MD [Partnered Physician] - 07/19/17 8:30 am
--- NOTE | 2017-07-12 12:17 | Electrophysiology Consult Note ---
Date of Encounter: 07/12/17 Time of Encounter: 12:09 Assessment and Plan (1) Atypical atrial flutter Current Visit: Yes Status: Acute Extensive history of tachyarrhythmias. H/o WPW ablation 06/2014. H/o intraoperative afib ablation , OLESYA ligation and mitral valve annuloplasty in 07/2014. H/o atypical atrial flutter ablation 09/2014. S/p 3 cardioversions for afib/aflutter. She was previously on flecainide and amiodarone. Documented to have persistent afib/ aflutter in the past. Presented with atrial flutter with RVR. Currently rate controlled after IV cardizem. Denies significant symptoms. TTE: Atrial fibrillation/flutter with RVR. LVEF 30%. Normal LV chamber size and wall thickness. Severe global left ventricular systolic dysfunction. Indeterminate diastolic function. Normal right ventricular size with mild hypokinesis. Severely dilated left atrium. Moderately dilated right atrium. Severe mitral annular calcification. Moderately thickened/calcified mitral valve leaflets with reduced mobility. Moderate to severe mitral regurgitation. Evaluation for mitral stenosis technically difficult. Mild pulmonary hypertension. TTE 12/08/14: EF 40-45%, severely dilated LA. Mild MR. TSH 1.[address] Geovany Baeza, atypical atrial flutter. Rate control with betablocker is recommended. If difficult to rate control can consider amiodarone. Continue coumadin therapy for anticoagulation. Goal INR 2.0-3.0. Follows with [facility]. Discussion w patient/family: The assessment and plan as outlined above was discussed with the patient and/or family members who expressed understanding and agreement. All questions were answered. Thank you for involving us in the care of your patient. Please call with any questions. History of Present Illness Consult date: 07/12/17 Requesting physician: Daphne Torres Consult reason: Aflutter Chief complaint: Tachycardia History of present illness: Ms. Alvarenga is a 72 year old female with a history of WPW ablation 06/2014, atrial flutter ablation 07/2014. She also underwent MVR with annuloplasty, OLESYA ligation, and intra-operative ablation for afib 07/2014. H/o three cardioversions. She also received IVC filter for DVT at that time. All procedures completed in [facility]. She recently established with [facility]. She was sent to the ER by her PCP Dr. Cameron for elevated HR seen at a routine visit. She admitted to intermittent palpitations and occasional SOB. During her hospital stay she initially presented with atrial flutter with RVR and was given adenosine in the ER. She converted to a rate controlled atrial flutter. She had recurrent atrial flutter with RVR today and was given a 30 mg bolus of Cardizem IV. HR now in the 90's. Electrophysiology consulted for further recommendation due to patient having complicated history of tachy-arrhythmias. Past Med Surg Social Fam HX - Past Medical History Medical history: atrial fibrillation, cardiomyopathy, DVT, hyperlipidemia, hypertension Psychiatric history: no psych history - Past Surgical History Surgical History: orthopedic, other, other, IVC filter - Social History Smoking Status: Never smoker Smokeless Tobacco Status: No Alcohol use: none Drug use: none - Family History Father Living Status: Age at : 86 Hx Family Cardiac Disorders: Yes (Heart disease) Mother Living Status: Age at : 60 Hx Family Cancer: Yes (Colon cancer) Sister Hx Family Cancer: Yes (Cervical cancer) Brother Hx Family Cancer: Yes (Colon cancer) Medications and Allergies Aspirin [Lo-Dose Aspirin EC] 81 mg PO DAILY 05/16/17 [History] Cholecalciferol (Vitamin D3) [Vitamin D] 2,000 unit PO DAILY 05/16/17 [History] Lisinopril [Zestril] 20 mg PO DAILY 05/16/17 [History] Magnesium Oxide [Magnesium] 500 mg PO DAILY 05/16/17 [History] Multivitamin [Multivitamins] 1 tab PO 3XW 05/16/17 [History] Simvastatin [Zocor] 20 mg PO HS 05/16/17 [History] Warfarin Sodium [Coumadin] 6 mg PO SUMOWEFR 07/11/17 [History] Warfarin [Coumadin] 4 mg PO TUTHSA 07/11/17 [History] Allergies codeine Adverse Reaction (Verified 07/11/17 16:37) Flushing All Systems Review: A 10-system review of systems was performed and is negative for pertinent findings except as documented above in the HPI. Physical Examination Vital Signs, Last 4 Hours Temp Pulse Resp BP Pulse Ox 07/12/17 11:19 98.0 F 84 16 156/108 95 General: Conversant, No Apparent Distress HEENT: Atraumatic, Normocephaly, Mucus Membranes Moist Neck: No JVD, Normal carotid pulses Cardiac: Reg Rate and Rhythm, Normal S1 and S2, No Murmur, Other (on telemetry) Lungs: Normal Breath Sounds, No Wheeze, Rales, Rhonchi, Other (lungs diminished posteriorly) Neuro: Alert and responsive, No focal deficits noted Abdomen: Soft, Non-Tender Skin: No rashes noted on visualized skin Musculoskeletal: No Chest Wall Tenderness Extremities: No Clubbing, No Cyanosis, No Edema, Normal Pulses Results 07/12/17 04:58 07/12/17 04:58 - Imaging and Cardiology Echo: report reviewed (Atrial fibrillation/flutter with RVR. LVEF 30%. Normal LV chamber size and wall thickness. Severe global left ventricular systolic dysfunction. Indeterminate diastolic function. Normal right ventricular size with mild hypokinesis. Severely dilated left atrium. Moderately dilated right atrium. Severe mitral annular calcification. Moderately thickened/calcified mitral valve leaflets with reduced mobility. Moderate to severe mitral regurgitation. Evaluation for mitral stenosis technically difficult. Planimetry not possible in short axis. Doppler evaluation demonstrates normal gradients, but possible underestimated due to rhythm/tachycardia. Mild pulmonary hypertension. Consider cardiology evaluation. Consider a repeat TTE when heart rate/rhythm better controlled.) - EKG Interpretation EKG results cardiology: personally reviewed Consult Discharge Plan - Plan Referrals: Wade Ceja MD [Partnered Physician] - (Cardiology will call patient at home with appointment.) Romeor Cameron MD [Partnered Physician] - 07/19/17 8:30 am
--- NOTE | 2017-07-12 14:53 | Electrocardiograph Report ---
[place] [address] Test Date: 2017-07-11 Pat Name: Vida Santillanwell Department: 104 Room: [facility] Gender: F Refrigeration Technician: TMR : 1945 Requested By: Campbell Gu Order Number: [id number] Reading MD: Nelia Baeza Measurements Intervals [place] Rate: 168 P: HI: 0 QRS: 14 QRSD: 86 T: 36 QT: 277 QTc: 369 Interpretive Statements SUPRAVENTRICULAR TACHYCARDIA NONSPECIFIC ST & T-WAVE ABNORMALITY ABNORMAL RHYTHM ECG Electronically Signed On 07-12-2017 14:51:27 EDT by Nelia Baeza
--- NOTE | 2017-07-12 17:36 | Electrocardiograph Report ---
[address] [address] Test Date: 2017-07-11 Pat Name: Vida Alvarenga Department: 104 Room: 2N03 Gender: F Field Service Analyst: DAX : 1945 Requested By: Campbell Gu Order Number: [id number] Reading MD: Geovany Baeza Measurements Intervals [place] Rate: 83 P: [place]: 0 QRS: 12 QRSD: 89 T: -12 QT: 398 QTc: 438 Interpretive Statements ATRIAL FLUTTER/TACHYCARDIA POSSIBLE RIGHT VENTRICULAR CONDUCTION DELAY NONSPECIFIC ST & T-WAVE ABNORMALITY ABNORMAL RHYTHM ECG Electronically Signed On 07-12-2017 17:35:04 EDT by Geovany Baeza
[2017-07-12] MEDS: *HR* Amiodarone 200 MG TABLET PO SCH (20:33)
[2017-07-13 06:48] LABS: BUN/Creatinine Ratio 14 (6-26); Blood Urea Nitrogen 13 mg/dL (7-20); Calcium 9.2 mg/dL (8.6-10.8); Carbon Dioxide 23 mEq/L (19-29); Chloride 110 mEq/L (98-109); Glucose 101 mg/dL (70-99); Magnesium 1.7 mg/dL (1.6-2.6); Osmolality,Calculated 290 (280-300); Potassium 3.9 mEq/L (3.5-4.5); Sodium 140 mEq/L (136-145); eGFR For African Americans > 60 (> 60); eGFR For Non-African Americans > 60 (> 60)
[2017-07-13] MEDS: Metoprolol XL (24 HR) Succ 25 MG TAB.ER.24H PO SCH (08:44)
[2017-07-13] MEDS: Aspirin Enteric Coated 81 MG Tablet PO SCH (08:44)
[2017-07-13] MEDS: Lisinopril 20 MG TABLET PO SCH (08:44)
[2017-07-13] MEDS: *HR* Amiodarone 200 MG TABLET PO SCH ×2 (08:44→21:01)
--- NOTE | 2017-07-13 09:41 | Internal Med Progress Note ---
Date of Encounter: 07/13/17 Time of Encounter: 09:35 - Assessment and plan (1) Atrial flutter with rapid ventricular response Current Visit: Yes Status: Acute Assessment and plan: Pt does have significant arrhythmia history with s/p cardiac ablation x 3 Pt was started on B carlos and Amiodarone y/d now her HR well controlled Cardiology on board 2 D Echo showed LVEF 30%, Normal LV chamber size and wall thickness. Severe global left ventricular systolic dysfunction. Indeterminate diastolic function She definitely need EPS studies.. Dr. Baeza is on board cont Coumadin for anticoagulation pharmacy consulted for Coumadin dose (2) Atrial arrhythmia Current Visit: Yes Status: Acute (3) H/O radiofrequency ablation for complex left atrial arrhythmia Current Visit: Yes Status: Acute (4) Hypertension Current Visit: Yes Status: Chronic Assessment and plan: stable cont home med Lisinopril also added Metoprolol Qualifiers: Hypertension type: essential hypertension Qualified Code(s): I10 - Essential (primary) hypertension (5) History of mitral valve repair Current Visit: Yes Status: Chronic Assessment and plan: Cont coumadin for anticoag (6) History of DVT (deep vein thrombosis) Current Visit: Yes Status: Chronic Assessment and plan: on Coumadin (7) Hyperlipidemia Current Visit: Yes Status: Chronic Assessment and plan: on statin Qualifiers: Hyperlipidemia type: unspecified Qualified Code(s): E78.5 - Hyperlipidemia , unspecified - Subjective Interval history: Ms. 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 Patient was sent from her PCP Dr. Cameron's office to [place] ED for tachycardia at rate of 160. Patient reports having intermittent palpitation at left later chest/flank since May. It 's associated with some shortness of breath and lightheadedness but no chest pain/discomfort, syncope, edema. Patient denies nausea, vomiting, diarrhea, abdominal pain, dysuria, fever. Patient takes aspirin, simvastatin and lisinopril at home and denies taking any thyroid supplement. Patient is not on any BB or CCB at home and per patient, her old [employer] sales consultant at [place] weaned her off from those rate-control medications. Patient's current [employer] sales consultant is Dr. Ceja and she has scheduled appointment with him tomorrow. Patient is full code. EKG in ED showed regular SVT at rate of 168. Per ED note, patient has appropriate response after receiving adenosine 6 mg and 12 mg. Patient also received one dose of Cardizem 10 mg IV bolus and patient remains hemodynamically stable with rate of 80s since. Cardizem drip was ordered in ED and never given as patient's heart rate stays at 80s. Patient was also noted to have INR 3.9. 07/13/17 - She is still in atrial flutter but rate controlled. Pt denied any CP / SOB. She is comfortably resting in bed - Constitutional Vitals: Temp Pulse Resp BP Pulse Ox 97.6 F 78 16 147/103 94 07/13/17 07:29 07/13/17 08:35 07/13/17 07:29 07/13/17 07:29 07/13/17 07:29 General appearance: Present: cooperative, A&O X 3, no acute distress, answers questions appropriately - Head Head exam: Present: atraumatic, normal inspection - Respiratory Respiratory exam: Present: CTAB. Absent: rales, respiratory distress, rhonchi, wheezes - Cardiovascular Cardiovascular exam: Present: irregular rhythm, +S1, +S2. Absent: systolic murmur - GI/Abdominal GI/Abdominal exam: Present: normal bowel sounds, soft. Absent: distended, rebound, tenderness - Extremities Exam Extremities exam: Present: pedal edema (trace). Absent: calf tenderness, tenderness - Neurological Exam Neurological exam: Present: alert, oriented X3 - Psychiatric Psychiatric exam: Present: normal affect, normal mood Internal Medicine: Result - Labs CBC & Chem 7: 07/12/17 04:58 07/13/17 05:52 Labs: BMP 07/13/17 05:52 Sodium 140 Potassium 3.9 Chloride 110 H Carbon Dioxide 23 BUN 13 Creatinine 0.90 Glucose 101 H Calcium 9.2 - ABG Interpretation ABG results: PT/INR, D-dimer PT 39.7 Seconds (9.4-12.1) H 07/12/17 04:58 Consult Discharge Plan - Plan Referrals: Wade Ceja MD [Partnered Physician] - (Cardiology will call patient at home with appointment.) Romero Cameron MD [Partnered Physician] - 07/19/17 8:30 am
--- NOTE | 2017-07-13 10:17 | Cardiology Progress Note ---
Date of Encounter: 07/13/17 Time of Encounter: 09:30 Assessment and Plan (1) Atypical atrial flutter Current Visit: Yes Status: Acute Extensive history of tachyarrhythmias. Hx of WPW ablation 06/2014, Hx intraoperative afib ablation, OLESYA ligation and mitral valve annuloplasty in 07/2014. Hx atypical atrial flutter ablation 09/2014. S/p 3 cardioversions for afib/ aflutter. She was previously on flecainide and amiodarone. Documented to have persistent afib/ aflutter in the past. TTE: Atrial fibrillation/flutter with RVR. LVEF 30%. Normal LV chamber size and wall thickness, severe global left ventricular systolic dysfunction. Indeterminate diastolic function. Normal right ventricular size with mild hypokinesis. Severely dilated left atrium. Moderately dilated right atrium. Severe MAC. Moderately thickened/ calcified mitral valve leaflets with reduced mobility.Moderate to severe mitral regurgitation. Evaluation for mitral stenosis technically difficult. Mild pulmonary hypertension. TTE 12/08/14: EF 40-45%, severely dilated LA. Mild MR. TSH 1.54 Suspect cardiomyopathy secondary to tachycardia--patient has been asymptomatic with rates >160. Consider repeating TTE when rate control improves. Presented with atrial flutter with RVR. Currently in atrial flutter (atypical); now rate controlled. Continue Toprol XL. PO Amiodarone loading with plan for DCCV with Dr. Geovany Baeza on Saturday. NPO after MN (except meds) Saturday night. Continue coumadin therapy for anticoagulation. Goal INR 2.0-3.0. Follows with [facility]. (2) Non-ischemic cardiomyopathy Current Visit: Yes Status: Acute Suspect non-ischemic cardiomyopathy in the setting of tachyarrhythmias with HR> 160, patient has been asymptomatic. Reported non-obstructive CAD per [facility] prior to MVR in 2013. No chest pain or discomfort. Appears euvolemic upon exam. Continue current medical therapy. Consider repeating TTE after HR are controlled. (3) History of mitral valve repair Current Visit: Yes Status: Chronic Hx of MVR in 2013. TTE suggests moderate to severe MR, recommend repeating when rate controlled ( RVR during time of study). Discussion w patient/family: The assessment and plan as outlined above was discussed with the patient and/or family members who expressed understanding and agreement. All questions were answered. Thank you for involving us in the care of your patient. Please call with any questions. The patient will be discussed and reviewed with Dr. Torres. Subjective Principal diagnosis: Aflutter Interval history: Seen and examined. Ms. Alvarenga has no complaints upon exam this morning. Objective Vital Signs, Last 4 Hours Temp Pulse Resp BP Pulse Ox 07/13/17 08:35 78 07/13/17 07:29 97.6 F 78 16 147/103 94 General: Conversant, No Apparent Distress HEENT: Atraumatic, Normocephaly Cardiac: Other (irregularly irregular, 2/6 systolic murmur) Lungs: Normal Breath Sounds Neuro: Alert and responsive Abdomen: Soft Skin: No rashes noted on visualized skin Musculoskeletal: No Chest Wall Tenderness Extremities: No Edema, Normal Pulses Results 07/12/17 04:58 07/13/17 05:52 Lab Results 07/13/17 05:52 Sodium 140 Potassium 3.9 Chloride 110 H Carbon Dioxide 23 BUN 13 Creatinine 0.90 Glucose 101 H Calcium 9.2 Magnesium 1.7 Active Medications Acetaminophen (Tylenol) 650 mg PO Q6HR PRN PRN Reason: Mild Pain (1-3) Stop: 01/10/18 20:05 Amiodarone HCl (Cordarone) 400 mg PO BID [facility] Stop: 01/11/18 21:01 Last Admin: 07/13/17 08:44 Dose: 400 mg Aspirin (Aspirin Ec) 81 mg PO DAILY [facility] Stop: 01/11/18 09:01 Last Admin: 07/13/17 08:44 Dose: 81 mg Lisinopril (Zestril) 20 mg PO DAILY [facility] PRN Reason: Protocol Stop: 01/11/18 09:01 Last Admin: 07/13/17 08:44 Dose: 20 mg Metoprolol Succinate (Toprol Xl) 25 mg PO DAILY [facility] Stop: 01/12/18 09:01 Last Admin: 07/13/17 08:44 Dose: 25 mg Omeprazole (Prilosec) 20 mg PO DAILY@0630 [facility] PRN Reason: Protocol Stop: 01/11/18 06:31 Last Admin: 07/13/17 05:56 Dose: 20 mg Simvastatin (Zocor) 20 mg PO HS [facility] PRN Reason: Protocol Stop: 01/10/18 21:01 Last Admin: 07/12/17 20:33 Dose: 20 mg Warfarin Sodium (Coumadin Perpt) 1 each PO DAILY@1800 PRN PRN Reason: SEE COMMENTS Stop: 01/12/18 18:01 - Imaging and Cardiology Echo: report reviewed Other Results: 12 hour tele: avg HR=79 aflutter - EKG Interpretation EKG results cardiology: personally reviewed Consult Discharge Plan - Plan Referrals: Wade Ceja MD [Partnered Physician] - (Cardiology will call patient at home with appointment.) Romero Cameron MD [Partnered Physician] - 07/19/17 8:30 am
[2017-07-13 10:33] LABS: INR 2.4; Prothrombin Time 26.1 Seconds (9.4-12.1)
[2017-07-13] MEDS ORDERED: *HR* Warfarin 4 MG TABLET PO SCH (18:00)
[2017-07-13] MEDS ORDERED: Warfarin perPT PO PRN (18:00)
[2017-07-14 01:57] LABS: Basophils % 0.2 %; Eosinophils # 0.2 K/mcL (0.0-0.6); Eosinophils % 1.9 %; Hematocrit 42.6 % (35.3-44.9); Hemoglobin 13.6 g/dL (11.5-15.4); Immature Granulocytes % 0.4 % (0-4); Lymphocytes # 2.7 K/mcL (0.6-4.6); Lymphocytes % 31.6 %; Mean Corpuscular HGB Conc 31.9 g/dL (31.6-35.5); Mean Corpuscular Hemoglobin 26.9 pg (28.0-33.3); Mean Corpuscular Volume 84.2 fL (83.0-100.0); Mean Platelet Volume 11.8 fL (9.4-12.4); Monocytes # 0.7 K/mcL (0.0-1.3); Monocytes % 8.1 %; Neutrophils # 4.9 K/mcL (1.6-8.9); Platelet Count 167 K/mcL (140-400); Red Blood Count 5.06 M/mcL (3.82-4.97); Red Cell Distribution Width 14.6 % (11.5-14.5); Segmented Neutrophils % 57.8 %
[2017-07-14 02:33] LABS: Calcium 8.7 mg/dL (8.6-10.8); Magnesium 1.9 mg/dL (1.6-2.6)
[2017-07-14 02:35] LABS: Potassium 4.5 mEq/L (3.5-4.5)
[2017-07-14 04:26] LABS: Prothrombin Time 22.3 Seconds (9.4-12.1)
--- NOTE | 2017-07-14 07:20 | Cardiology Progress Note ---
Date of Encounter: 07/14/17 Time of Encounter: 05:50 Assessment and Plan (1) Atypical atrial flutter Current Visit: Yes Status: Acute Extensive history of tachyarrhythmias. Hx of WPW ablation 06/2014, Hx intraoperative afib ablation, OLESYA ligation and mitral valve annuloplasty in 07/2014. Hx atypical atrial flutter ablation 09/2014. S/p 3 cardioversions for afib/ aflutter. She was previously on flecainide and amiodarone. Documented to have persistent afib/ aflutter in the past. TTE: Atrial fibrillation/flutter with RVR. LVEF 30%. Normal LV chamber size and wall thickness, severe global left ventricular systolic dysfunction. Indeterminate diastolic function. Normal right ventricular size with mild hypokinesis. Severely dilated left atrium. Moderately dilated right atrium. Severe MAC. Moderately thickened/ calcified mitral valve leaflets with reduced mobility.Moderate to severe mitral regurgitation. Evaluation for mitral stenosis technically difficult. Mild pulmonary hypertension. TTE 12/08/14: EF 40-45%, severely dilated LA. Mild MR. TSH 1.54 Suspect cardiomyopathy secondary to tachycardia--patient has been asymptomatic with rates >160. Consider repeating TTE when rate control improves. Presented with atrial flutter with RVR. Currently in atrial flutter (atypical); now rate controlled. Continue Toprol XL. PO Amiodarone loading with plan for DCCV with Dr. Geovany Baeza on Saturday. NPO after MN (except meds) Saturday night. Continue coumadin therapy for anticoagulation. Goal INR 2.0-3.0. Follows with [facility]. INR's have been therapeutic for the past 30+ days. (2) Non-ischemic cardiomyopathy Current Visit: Yes Status: Acute Suspect non-ischemic cardiomyopathy in the setting of tachyarrhythmias with HR> 160, patient has been asymptomatic. Reported non-obstructive CAD per [facility] prior to MVR in 2013. No chest pain or discomfort. Appears euvolemic upon exam. Continue current medical therapy. Consider repeating TTE after HR are controlled. (3) History of mitral valve repair Current Visit: Yes Status: Chronic Hx of MVR in 2013. TTE suggests moderate to severe MR, recommend repeating when rate controlled ( RVR during time of study). Discussion w patient/family: The assessment and plan as outlined above was discussed with the patient and/or family members who expressed understanding and agreement. All questions were answered. Thank you for involving us in the care of your patient. Please call with any questions. The patient will be discussed and reviewed with Dr. Torres. Subjective Principal diagnosis: Aflutter Interval history: Seen and examined. Ms. Alvarenga has no complaints upon exam this morning. Mild elevation in SCr noted per labs today. Objective Vital Signs, Last 4 Hours Temp Pulse Resp BP Pulse Ox 07/14/17 03:31 97.8 F 71 17 142/104 95 07/14/17 03:20 71 General: Conversant HEENT: Atraumatic, Normocephaly, Other (small bruise under right eye) Cardiac: Normal S1 and S2, Other (irregularly irregular) Lungs: Normal Breath Sounds Neuro: Alert and responsive Abdomen: Soft Skin: No rashes noted on visualized skin Musculoskeletal: No Chest Wall Tenderness Extremities: No Edema, Normal Pulses Results 07/14/17 01:17 07/14/17 01:17 Lab Results 07/13/17 07/14/17 07/14/17 10:18 01:17 01:17 WBC 8.4 Hgb 13.6 Hct 42.6 Plt Count 167 INR 2.4 Sodium 140 Potassium 4.5 Chloride 112 H Carbon Dioxide 15 L BUN 16 Creatinine 1.34 H Glucose 106 H Calcium 8.7 Magnesium 1.9 07/14/17 03:20 WBC Hgb Hct Plt Count INR 2.0 Sodium Potassium Chloride Carbon Dioxide BUN Creatinine Glucose Calcium Magnesium Active Medications Acetaminophen (Tylenol) 650 mg PO Q6HR PRN PRN Reason: Mild Pain (1-3) Stop: 01/10/18 20:05 Amiodarone HCl (Cordarone) 400 mg PO BID [facility] Stop: 01/11/18 21:01 Last Admin: 07/13/17 21:01 Dose: 400 mg Aspirin (Aspirin Ec) 81 mg PO DAILY [facility] Stop: 01/11/18 09:01 Last Admin: 07/13/17 08:44 Dose: 81 mg Lisinopril (Zestril) 20 mg PO DAILY [facility] PRN Reason: Protocol Stop: 01/11/18 09:01 Last Admin: 07/13/17 08:44 Dose: 20 mg Metoprolol Succinate (Toprol Xl) 25 mg PO DAILY [facility] Stop: 01/12/18 09:01 Last Admin: 07/13/17 08:44 Dose: 25 mg Omeprazole (Prilosec) 20 mg PO DAILY@0630 [facility] PRN Reason: Protocol Stop: 01/11/18 06:31 Last Admin: 07/14/17 06:32 Dose: 20 mg Simvastatin (Zocor) 20 mg PO HS [facility] PRN Reason: Protocol Stop: 01/10/18 21:01 Last Admin: 07/13/17 21:01 Dose: 20 mg Warfarin Sodium (Coumadin Perpt) 1 each PO DAILY@1800 PRN PRN Reason: SEE COMMENTS Stop: 01/12/18 18:01 Warfarin Sodium (Coumadin) 4 mg PO TuThSa@1800 [facility] Stop: 01/12/18 18:01 Last Admin: 07/13/17 18:20 Dose: 4 mg Warfarin Sodium (Coumadin) 6 mg PO SuMoWeFr@1800 [facility] Stop: 01/13/18 18:01 - Imaging and Cardiology Echo: report reviewed Other Results: 12 hour tele: avg HR 72 atypical aflutter, RVR noted overnight. - EKG Interpretation EKG results cardiology: personally reviewed Consult Discharge Plan - Plan Referrals: Wade Ceja MD [Partnered Physician] - (Cardiology will call patient at home with appointment.) Romero Cameron MD [Partnered Physician] - 07/19/17 8:30 am
[2017-07-14] MEDS: Aspirin Enteric Coated 81 MG Tablet PO SCH (08:12)
[2017-07-14] MEDS: *HR* Amiodarone 200 MG TABLET PO SCH ×2 (08:12→21:04)
[2017-07-14] MEDS: Metoprolol XL (24 HR) Succ 25 MG TAB.ER.24H PO SCH (08:12)
[2017-07-14] MEDS: Lisinopril 20 MG TABLET PO SCH (08:12)
[2017-07-14] MEDS ORDERED: Furosemide 20 MG/2 ML VIAL IVP ONE (08:58)
--- NOTE | 2017-07-14 09:02 | Internal Med Progress Note ---
Date of Encounter: 07/14/17 Time of Encounter: 08:59 - Assessment and plan (1) Atrial flutter with rapid ventricular response Current Visit: Yes Status: Resolved Assessment and plan: Pt does have significant arrhythmia history with s/p cardiac ablation x 3 Hx of WPW ablation 06/2014, Hx intraoperative afib ablation, OLESYA ligation and mitral valve annuloplasty in 07/2014. Hx atypical atrial flutter ablation 09/2014. Pt was started on B carlos and Amiodarone on 07/12/13 now her HR well controlled..however still in atypical atrial flutter Cardiology on board - Scheduled for cardioversion in AM 2 D Echo showed LVEF 30%, Normal LV chamber size and wall thickness. Severe global left ventricular systolic dysfunction. Indeterminate diastolic function cont Coumadin for anticoagulation pharmacy consulted for Coumadin dose (2) Atrial arrhythmia Current Visit: Yes Status: Acute (3) H/O radiofrequency ablation for complex left atrial arrhythmia Current Visit: Yes Status: Acute (4) Hypertension Current Visit: Yes Status: Chronic Assessment and plan: BP fairly controlled with Lisinopril and Metoprolol Qualifiers: Hypertension type: essential hypertension Qualified Code(s): I10 - Essential (primary) hypertension (5) History of mitral valve repair Current Visit: Yes Status: Chronic Assessment and plan: Cont coumadin for anticoag (6) DRU (acute kidney injury) Current Visit: Yes Status: Acute Assessment and plan: could be due to volume overload - cardio renal syndrome especially with worsening pedal edema will give 1 dose IV lasix and monitor her Cr closely (7) History of DVT (deep vein thrombosis) Current Visit: Yes Status: Chronic Assessment and plan: on Coumadin (8) Hyperlipidemia Current Visit: Yes Status: Chronic Assessment and plan: on statin Qualifiers: Hyperlipidemia type: unspecified Qualified Code(s): E78.5 - Hyperlipidemia , unspecified - Subjective Interval history: Ms. 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 Patient was sent from her PCP Dr. Cameron's office to [place] ED for tachycardia at rate of 160. Patient reports having intermittent palpitation at left later chest/flank since May. It 's associated with some shortness of breath and lightheadedness but no chest pain/discomfort, syncope, edema. Patient denies nausea, vomiting, diarrhea, abdominal pain, dysuria, fever. Patient takes aspirin, simvastatin and lisinopril at home and denies taking any thyroid supplement. Patient is not on any BB or CCB at home and per patient, her old color room attendant at [place] weaned her off from those rate-control medications. Patient's current color room attendant is Dr. Ceja and she has scheduled appointment with him tomorrow. Patient is full code. EKG in ED showed regular SVT at rate of 168. Per ED note, patient has appropriate response after receiving adenosine 6 mg and 12 mg. Patient also received one dose of Cardizem 10 mg IV bolus and patient remains hemodynamically stable with rate of 80s since. Cardizem drip was ordered in ED and never given as patient's heart rate stays at 80s. Patient was also noted to have INR 3.9. 07/13/17 - She is still in atypical atrial flutter but rate controlled. Pt denied any CP / SOB. She is comfortably resting in bed. - Constitutional Vitals: Temp Pulse Resp BP Pulse Ox 97.7 F 85 16 158/108 96 07/14/17 08:05 07/14/17 08:05 07/14/17 08:05 07/14/17 08:05 07/14/17 08:05 General appearance: Present: cooperative, A&O X 3, no acute distress, answers questions appropriately - Head Head exam: Present: atraumatic, normal inspection - Respiratory Respiratory exam: Present: decreased breath sounds, rales (at basal regions). Absent: respiratory distress, rhonchi, wheezes - Cardiovascular Cardiovascular exam: Present: irregular rhythm, +S1, +S2. Absent: systolic murmur - GI/Abdominal GI/Abdominal exam: Present: soft. Absent: rebound, rigid, tenderness - Extremities Exam Extremities exam: Present: pedal edema (1+). Absent: calf tenderness, tenderness - Psychiatric Psychiatric exam: Present: normal affect, normal mood Internal Medicine: Result - Labs CBC & Chem 7: 07/14/17 01:17 07/14/17 01:17 Labs: Short CBC 07/14/17 Range/Units 01:17 WBC 8.4 (4.3-11.1) K/mcL Hgb 13.6 (11.5-15.4) g/dL Hct 42.6 (35.3-44.9) % Plt Count 167 (140-400) K/mcL Neutrophils # 4.9 (1.6-8.9) K/mcL BMP 07/14/17 01:17 Sodium 140 Potassium 4.5 Chloride 112 H Carbon Dioxide 15 L BUN 16 Creatinine 1.34 H Glucose 106 H Calcium 8.7 - ABG Interpretation ABG results: PT/INR, D-dimer PT 22.3 Seconds (9.4-12.1) H 07/14/17 03:20 Consult Discharge Plan - Plan Referrals: Wade Ceja MD [Partnered Physician] - (Cardiology will call patient at home with appointment.) Romero Cameron MD [Partnered Physician] - 07/19/17 8:30 am
[2017-07-14] MEDS ORDERED: *HR* Warfarin 3 MG TABLET PO SCH (18:00)
[2017-07-15 01:12] LABS: INR 2.4
[2017-07-15] MEDS: Aspirin Enteric Coated 81 MG Tablet PO SCH (07:45)
[2017-07-15] MEDS: *HR* Amiodarone 200 MG TABLET PO SCH ×2 (07:46→21:16)
[2017-07-15] MEDS: Lisinopril 20 MG TABLET PO SCH (07:46)
[2017-07-15] MEDS: Metoprolol XL (24 HR) Succ 25 MG TAB.ER.24H PO SCH (07:46)
[2017-07-15 10:51] LABS: BUN/Creatinine Ratio 16 (6-26); Blood Urea Nitrogen 16 mg/dL (7-20); Calcium 9.5 mg/dL (8.6-10.8); Carbon Dioxide 24 mEq/L (19-29); Chloride 109 mEq/L (98-109); Glucose 106 mg/dL (70-99); Magnesium 1.7 mg/dL (1.6-2.6); Osmolality,Calculated 294 (280-300); Potassium 3.9 mEq/L (3.5-4.5); Sodium 141 mEq/L (136-145); eGFR For African Americans > 60 (> 60); eGFR For Non-African Americans 53 (> 60)
[2017-07-15] MEDS ORDERED: *HR* Midazolam HCl 5 MG/5 ML VIAL IVP ONE (11:03)
[2017-07-15] MEDS ORDERED: *HR* FentaNYL (PF) 100 MCG/2 ML VIAL ONE (11:03)
[2017-07-15] MEDS ORDERED: 0.9 % Sodium Chloride 500 ML ONE (11:08)
--- NOTE | 2017-07-15 11:09 | Pre-Sedation Evaluation ---
Pre-sedation evaluation - Pre-sedation checklist Date of procedure: 07/15/17 Procedure: cardioversion Recent Vitals: Last Vital Signs Temp 97.7 F 07/15/17 07:39 Pulse 76 07/15/17 07:39 Resp 14 07/15/17 07:39 BP 159/107 07/15/17 07:39 Pulse Ox 95 07/15/17 07:39 H&P (including ROS) documented in medical record: Yes Previous reaction to sedatives/anesthetics: Unknown Dietary Status: NPO after Midnight Airway Assessment: Patient can open mouth completely, TMJ function normal, Micrognathia (under-bite, receding chin) absent Dentition: full dentition Possible difficult airway: No ASA Classification *see protocol: CLASS II-Mild systemic disease Plan of Care: Pt appropriate candidate for procedure/moderate/conscious sedation , Risks/benefits of procedure/sedation discussed w/ patient/family
[2017-07-15] MEDS ORDERED: Ondansetron 4 MG/2 ML VIAL IVP PRN (12:34)
[2017-07-15] MEDS ORDERED: Ondansetron 4 MG/2 ML VIAL ONE (12:35)
--- NOTE | 2017-07-15 12:42 | Invasive Diagnostic Lab ---
Cardioversion Name: Vida Alvarenga Date of Study: 07/15/2017 : 1945 Ht: 165.0 cm / 65.0 in Medical Record#: [id number] Age: 72 Wt: 67.0 kg / 147.7 lb Gender: Female BSA: 1.74 Location: Fluoro Dose: 0 mGy BMI: 24.61 Operating Physician: Geovany Baeza MD, FACC Referring MD: Procedures Performed: Procedure CARDIOVERSION, EXTERNAL Indications: Description Atrial arrhythmia Impressions: Recommendations: Procedure Description: Following informed consent , the patient was sedated. After adequate sedation was achieved, cardioversion in the AP approach was successful using 100 Joules of biphasic energy. Normal sinus rhythm was restored after 1 attempt(s). The patient was monitored for the standard 30 minutes post procedure. Attempt # 1 100 joules EP Study Data ABLATION Procedure Medications Time Medication Dose Unit Route Given By 11:05 AM Oxygen 2 L/min nasal cannula Ofelia Rodney RN 11:10 AM Versed 3 Mg Intravenous Ofelia Rodney RN 11:11 AM Fentanyl 50 Mcg Intravenous Ofelia Rodney RN 11:19 AM Versed 2 Mg Intravenous Ofelia Rodney RN 11:19 AM Fentanyl 50 Mcg Intravenous Ofelia Rodney RN Contrast: Isovue ml. Complications: No complications occurred during the procedure. Complication None Updated by Geovany Baeza MD, FACC on 07/15/2017 12:38:22 PM electronically signed on 07/15/2017 12:38:38 PM with status of Final
--- NOTE | 2017-07-15 13:45 | Event Note ---
Date of Encounter: 07/15/17 Time of Encounter: 13:44 - Cardiology Event Note S/P successful DCCV. SR. Will now order a repeat echo to re-evaluate EF and Mitral valve since she is in sinus rhythm and rate controlled. Continue to follow for results.
--- NOTE | 2017-07-15 17:57 | Internal Med Progress Note ---
Date of Encounter: 07/15/17 Time of Encounter: 17:53 - Assessment and plan (1) Atrial flutter with rapid ventricular response Current Visit: Yes Status: Resolved Assessment and plan: Pt does have significant arrhythmia history with s/p cardiac ablation x 3 Hx of WPW ablation 06/2014, Hx intraoperative afib ablation, OLESYA ligation and mitral valve annuloplasty in 07/2014. Hx atypical atrial flutter ablation 09/2014. 2 D Echo showed LVEF 30%, Normal LV chamber size and wall thickness. Severe global left ventricular systolic dysfunction. Indeterminate diastolic function Pt was started on B carlos and Amiodarone on 07/12/13 now her HR well controlled with Metoprolol XL s/p cardioversion on 07/15/17 - now in NSR Card recommend for f/u 2 D Echo after cardioversion .. possible stress test cont Coumadin for anticoagulation pharmacy consulted for Coumadin dose (2) Atrial arrhythmia Current Visit: Yes Status: Acute (3) H/O radiofrequency ablation for complex left atrial arrhythmia Current Visit: Yes Status: Acute (4) Hypertension Current Visit: Yes Status: Chronic Assessment and plan: BP fairly controlled with Lisinopril and Metoprolol Qualifiers: Hypertension type: essential hypertension Qualified Code(s): I10 - Essential (primary) hypertension (5) History of mitral valve repair Current Visit: Yes Status: Chronic Assessment and plan: Cont coumadin for anticoag (6) DRU (acute kidney injury) Current Visit: Yes Status: Acute Assessment and plan: could be due to volume overload - cardio renal syndrome especially with worsening pedal edema Gave 1 dose IV lasix y/d - had -1350 negative fluid balance her creatinine improved (7) History of DVT (deep vein thrombosis) Current Visit: Yes Status: Chronic Assessment and plan: on Coumadin (8) Hyperlipidemia Current Visit: Yes Status: Chronic Assessment and plan: on statin Qualifiers: Hyperlipidemia type: unspecified Qualified Code(s): E78.5 - Hyperlipidemia , unspecified - Subjective Interval history: Ms. 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 Patient was sent from her PCP Dr. Cameron's office to [place] ED for tachycardia at rate of 160. Patient reports having intermittent palpitation at left later chest/flank since May. It 's associated with some shortness of breath and lightheadedness but no chest pain/discomfort, syncope, edema. Patient denies nausea, vomiting, diarrhea, abdominal pain, dysuria, fever. Patient takes aspirin, simvastatin and lisinopril at home and denies taking any thyroid supplement. Patient is not on any BB or CCB at home and per patient, her old shooting gallery operator at [place] weaned her off from those rate-control medications. Patient's current shooting gallery operator is Dr. Ceja and she has scheduled appointment with him tomorrow. Patient is full code. EKG in ED showed regular SVT at rate of 168. Per ED note, patient has appropriate response after receiving adenosine 6 mg and 12 mg. Patient also received one dose of Cardizem 10 mg IV bolus and patient remains hemodynamically stable with rate of 80s since. Cardizem drip was ordered in ED and never given as patient's heart rate stays at 80s. Patient was also noted to have INR 3.9. 07/15/17 - Pt came back from Cardioversion. Now she in NSR. Pt denied any CP / SOB. She is comfortably resting in bed. - Constitutional Vitals: Temp Pulse Resp BP Pulse Ox 97.4 F L 58 16 156/84 96 07/15/17 17:11 07/15/17 17:11 07/15/17 17:11 07/15/17 17:11 07/15/17 17:11 General appearance: Present: cooperative, A&O X 3, no acute distress, answers questions appropriately - Head Head exam: Present: atraumatic, normal inspection - Respiratory Respiratory exam: Present: decreased breath sounds, wheezes. Absent: respiratory distress, rhonchi - Cardiovascular Cardiovascular exam: Present: RRR, +S1, +S2, systolic murmur - GI/Abdominal GI/Abdominal exam: Present: soft. Absent: distended, normal bowel sounds, rigid , tenderness - Extremities Exam Extremities exam: Present: pedal edema (trace). Absent: calf tenderness, tenderness - Psychiatric Psychiatric exam: Present: normal affect, normal mood Internal Medicine: Result - Labs CBC & Chem 7: 07/14/17 01:17 07/15/17 10:25 Labs: BMP 07/15/17 10:25 Sodium 141 Potassium 3.9 Chloride 109 Carbon Dioxide 24 BUN 16 Creatinine 1.03 Glucose 106 H Calcium 9.5 - ABG Interpretation ABG results: PT/INR, D-dimer PT 27.0 Seconds (9.4-12.1) H 07/15/17 00:43 Consult Discharge Plan - Plan Referrals: Wade Ceja MD [Partnered Physician] - (Cardiology will call patient at home with appointment.) Romero Cameron MD [Primary Care Provider] - 07/19/17 8:30 am
[2017-07-15] MEDS ORDERED: *HR* Warfarin 3 MG TABLET PO ONE (18:00)
[2017-07-16 07:23] LABS: INR 3.8; Prothrombin Time 42.5 Seconds (9.4-12.1)
[2017-07-16 07:39] LABS: BUN/Creatinine Ratio 17 (6-26); Blood Urea Nitrogen 17 mg/dL (7-20); Calcium 9.2 mg/dL (8.6-10.8); Carbon Dioxide 20 mEq/L (19-29); Chloride 108 mEq/L (98-109); Glucose 98 mg/dL (70-99); Magnesium 1.9 mg/dL (1.6-2.6); Osmolality,Calculated 290 (280-300); Sodium 139 mEq/L (136-145); eGFR For African Americans > 60 (> 60); eGFR For Non-African Americans 56 (> 60)
[2017-07-16 07:41] LABS: Potassium 4.2 mEq/L (3.5-4.5)
[2017-07-16] MEDS: Metoprolol XL (24 HR) Succ 25 MG TAB.ER.24H PO SCH (07:51)
[2017-07-16] MEDS: Aspirin Enteric Coated 81 MG Tablet PO SCH (09:04)
[2017-07-16] MEDS: Lisinopril 20 MG TABLET PO SCH (09:04)
[2017-07-16] MEDS: *HR* Amiodarone 200 MG TABLET PO SCH (09:34)
--- NOTE | 2017-07-16 11:23 | Cardiology Progress Note ---
Date of Encounter: 07/16/17 Time of Encounter: 11:23 Assessment and Plan (1) Atypical atrial flutter Current Visit: Yes Status: Acute Extensive history of tachyarrhythmias. Hx of WPW ablation 06/2014, Hx intraoperative afib ablation, OLESYA ligation and mitral valve annuloplasty in 07/2014. Hx atypical atrial flutter ablation 09/2014. S/p 3 cardioversions for afib/ aflutter. She was previously on flecainide and amiodarone. Documented to have persistent afib/ aflutter in the past. TTE 07/12/17: Atrial fibrillation/flutter with RVR. LVEF 30%. Normal LV chamber size and wall thickness, severe global left ventricular systolic dysfunction. Indeterminate diastolic function. Normal right ventricular size with mild hypokinesis. Severely dilated left atrium. Moderately dilated right atrium. Severe MAC. Moderately thickened/calcified mitral valve leaflets with reduced mobility.Moderate to severe mitral regurgitation. Evaluation for mitral stenosis technically difficult. Mild pulmonary hypertension. TTE 12/08/14: EF 40-45%, severely dilated LA. Mild MR. TSH 1.54 Suspect cardiomyopathy secondary to tachycardia--patient had been asymptomatic with rates >160. PO Amiodarone loaded with successful DCCV yesterday to sinus rhythm. Stop BB due to bradycardia, 12 hr tele AVG HR 53. Continue Amiodarone PO, discussed with Dr. Geovany Baeza, dose at 200mg BID x 1 month, then will reduce to daily dosing as outpt. TTE repeated 07/15/17 after back in sinus rhythm. EF appears to be 35-40%, mildly improved from the study 07/12 when she was RVR. Mitral valve appears have thickened valve leaflets with restriction PMVL motion, moderate MR, no evidence of stenosis. Continue coumadin therapy for anticoagulation. Goal INR 2.0-3.0. Follows with [facility]. INR 3.8 today, supratherapeutic. No evidence of bleeding. INR's have been therapeutic for the past 30+ days. Cardiology signing off. Reconsult PRN. Follow-up as outpt in 2-3 weeks. (2) History of mitral valve repair Current Visit: Yes Status: Chronic Hx of MVR in 2013. TTE repeated yesterday once back in sinus. Thickened bioprosthetic mitral valve leaflets with restriction PMVL motion, moderate MR. (3) Non-ischemic cardiomyopathy Current Visit: Yes Status: Acute Suspect non-ischemic cardiomyopathy in the setting of tachyarrhythmias with HR> 160, patient has been asymptomatic. Reported non-obstructive CAD per [facility] prior to MVR in 2013. No chest pain or discomfort. Appears euvolemic upon exam. Continue current medical therapy. Repeated TTE yesterday once back in sinus, EF appeared to be mildly improved from study 07/12 when she was in RVR. EF 35-40%, previously 40-45% in 2014. Consider repeating as outpt in 3 months after being adequately rate controlled. Stopping BB due to HR being unable to tolerate. Continue WILMAN-i. Discussion w patient/family: The assessment and plan as outlined above was discussed with the patient and/or family members who expressed understanding and agreement. All questions were answered. Thank you for involving us in the care of your patient. Please call with any questions. I will discuss all the above with Dr. Miranda and make changes as necessary. Subjective Principal diagnosis: Aflutter Interval history: S/P successful DCCV yesterday with return to SR. 12 hr tele AVG HR 53, SR. Repeated echo yesterday after back in sinus. EF appears to be 35-40% and moderate MR. Thickened bioprosthetic mitral valve leaflets with restriction PMVL motion. Pt denies any complaints this AM. Objective Vital Signs Temp Pulse Resp BP Pulse Ox 07/16/17 11:29 97.6 F 63 16 155/89 97 07/16/17 07:16 97.8 F 55 14 164/90 97 07/16/17 05:26 84 07/16/17 04:12 97.7 F 53 18 153/89 94 07/15/17 23:36 97.6 F 57 19 136/78 98 07/15/17 19:48 97.6 F 61 19 134/79 97 07/15/17 17:11 97.4 F L 58 16 156/84 96 07/15/17 13:00 48 142/92 07/15/17 12:30 67 173/108 07/15/17 12:00 51 130/88 Intake and Output 07/15/17 07/16/17 07/16/17 23:59 07:59 15:59 Intake Total 600 / 600 Output Total 450 / 450 125 / 125 Balance 150 / 150 -125 / -125 Intake: Oral 600 / 600 Output: Urine 450 / 450 125 / 125 Other: Weight 67.1 kg Blood Glucose* 95 Patient Weight 07/16/17 23:59 Weight 67.1 kg General: Conversant, No Apparent Distress HEENT: Atraumatic, Normocephaly, Mucus Membranes Moist Neck: No JVD, Normal carotid pulses Cardiac: Reg Rate and Rhythm, Normal S1 and S2, Other (2/6 murmur noted) Lungs: Normal Breath Sounds, No Wheeze, Rales, Rhonchi Neuro: Alert and responsive, No focal deficits noted Abdomen: Soft, Non-Tender Skin: No rashes noted on visualized skin Musculoskeletal: No Chest Wall Tenderness Extremities: No Clubbing, No Cyanosis, No Edema, Normal Pulses Results 07/14/17 01:17 07/16/17 06:50 Lab Results 07/16/17 07/16/17 06:50 06:50 INR 3.8 D Sodium 139 Potassium 4.2 Chloride 108 Carbon Dioxide 20 BUN 17 Creatinine 0.98 Glucose 98 Calcium 9.2 Magnesium 1.9 [facility] 07/16/17 Range/Units 06:50 Sodium 139 (136-145) mEq/L Potassium 4.2 (3.5-4.5) mEq/L Chloride 108 (98-109) mEq/L Carbon Dioxide 20 (19-29) mEq/L BUN 17 (7-20) mg/dL Creatinine 0.98 (0.57-1.11) mg/dL Glucose 98 (70-99) mg/dL Calcium 9.2 (8.6-10.8) mg/dL Active Medications Acetaminophen (Tylenol) 650 mg PO Q6HR PRN PRN Reason: Mild Pain (1-3) Stop: 01/10/18 20:05 Amiodarone HCl (Cordarone) 400 mg PO BID [facility] Stop: 01/11/18 21:01 Last Admin: 07/16/17 09:34 Dose: 400 mg Aspirin (Aspirin Ec) 81 mg PO DAILY [facility] Stop: 01/11/18 09:01 Last Admin: 07/16/17 09:04 Dose: 81 mg Lisinopril (Zestril) 20 mg PO DAILY [facility] PRN Reason: Protocol Stop: 01/11/18 09:01 Last Admin: 07/16/17 09:04 Dose: 20 mg Metoprolol Succinate (Toprol Xl) 25 mg PO DAILY [facility] Stop: 01/12/18 09:01 Last Admin: 07/16/17 07:51 Dose: Not Given Omeprazole (Prilosec) 20 mg PO DAILY@0630 [facility] PRN Reason: Protocol Stop: 01/11/18 06:31 Last Admin: 07/16/17 06:00 Dose: 20 mg Ondansetron HCl (Zofran) 4 mg IVP Q6HR PRN; Protocol PRN Reason: Nausea Stop: 01/14/18 12:35 Last Admin: 07/15/17 12:42 Dose: 4 mg Simvastatin (Zocor) 20 mg PO HS [facility] PRN Reason: Protocol Stop: 01/10/18 21:01 Last Admin: 07/15/17 21:16 Dose: 20 mg Warfarin Sodium (Coumadin Perpt) 1 each PO DAILY@1800 PRN PRN Reason: SEE COMMENTS Stop: 01/12/18 18:01 - Imaging and Cardiology Echo: report reviewed - EKG Interpretation EKG results cardiology: other (12 hr tele AVG HR 53, SR) Consult Discharge Plan - Plan Referrals: Wade Ceja MD [Partnered Physician] - (Cardiology will call patient at home with appointment.) Romero Cameron MD [Primary Care Provider] - 07/19/17 8:30 am
[2017-07-16 11:33] VITALS: BP 155/89
--- NOTE | 2017-07-16 12:08 | Discharge Summary ---
Date of Encounter: 07/16/17 Time of Encounter: 08:50 - Discharge Diagnosis (1) Atrial flutter with rapid ventricular response Priority: Primary Status: Resolved Comments: Suspect cardiomyopathy secondary to tachycardia--patient had been asymptomatic with rates >160. PO Amiodarone loaded with successful DCCV yesterday to sinus rhythm. Stop BB due to bradycardia, 12 hr tele AVG HR 53. Continue Amiodarone PO - dose at 200mg BID x 1 month, then will reduce to daily dosing as outpt - as advised by cardiology extensive history of tachyarrhythmias. Hx of WPW ablation 06/2014, Hx intraoperative afib ablation, OLESYA ligation and mitral valve annuloplasty in 07/2014. Hx atypical atrial flutter ablation 09/2014. S/p 3 cardioversions for afib/ aflutter. She was previously on flecainide and amiodarone. Documented to have persistent afib/ aflutter in the past. TTE 07/12/17: Atrial fibrillation/flutter with RVR. LVEF 30%. Normal LV chamber size and wall thickness, severe global left ventricular systolic dysfunction. Indeterminate diastolic function. Normal right ventricular size with mild hypokinesis. Severely dilated left atrium. Moderately dilated right atrium. Severe MAC. Moderately thickened/calcified mitral valve leaflets with reduced mobility.Moderate to severe mitral regurgitation. Evaluation for mitral stenosis technically difficult. Mild pulmonary hypertension. TTE 12/08/14: EF 40-45%, severely dilated LA. Mild MR. TSH 1.54 TTE repeated 07/15/17 after back in sinus rhythm. EF appears to be 35-40%, mildly improved from the study 07/12 when she was RVR. Mitral valve appears have thickened valve leaflets with restriction PMVL motion, moderate MR, no evidence of stenosis. Continue Coumadin for anticoagulation. Goal INR 2.0-3.0. Follows with [facility]. INR 3.8 today, supratherapeutic. No evidence of bleeding. INR's have been therapeutic for the past 30+ days. Follow-up with cardiology as outpatient (2) Non-ischemic cardiomyopathy Priority: Secondary Status: Chronic Comments: Suspect non-ischemic cardiomyopathy in the setting of tachyarrhythmias with HR> 160, patient has been asymptomatic Reported non-obstructive CAD per [facility] prior to MVR in 2013. No chest pain or discomfort. Continue current medical therapy. Repeated TTE yesterday once back in sinus, EF appeared to be mildly improved from study 07/12 when she was in RVR. EF 35-40%, previously 40-45% in 2014. Consider repeating as outpt in 3 months after being adequately rate controlled. Stopping BB due to HR being unable to tolerate. Continue WILMAN-i. Follow-up with cardiology as outpatient (3) History of mitral valve repair Priority: Secondary Status: Chronic Comments: Hx of MVR in 2013 TTE repeated yesterday once back in sinus - Thickened bioprosthetic mitral valve leaflets with restriction PMVL motion, moderate MR (4) H/O radiofrequency ablation for complex left atrial arrhythmia Priority: Secondary Status: Chronic (5) Hyperlipidemia Priority: Secondary Status: Chronic Comments: Continue statin Qualifiers: Hyperlipidemia type: unspecified Qualified Code(s): E78.5 - Hyperlipidemia , unspecified (6) History of DVT (deep vein thrombosis) Priority: Secondary Status: Chronic Comments: Continue Coumadin - Discharge Medications Prescriptions: Amiodarone [Cordarone] 200 mg PO BID 30 Days Lisinopril [Zestril] 20 mg PO DAILY #30 Simvastatin [Zocor] 20 mg PO HS #30 Home Medications: Aspirin [Lo-Dose Aspirin EC] 81 mg PO DAILY 05/16/17 [History] Cholecalciferol (Vitamin D3) [Vitamin D3] 2,000 unit PO DAILY 05/16/17 [History] Magnesium Oxide [Magnesium] 500 mg PO DAILY 05/16/17 [History] Multivitamin [Multivitamins] 1 tab PO 3XW 05/16/17 [History] Warfarin Sodium [Coumadin] 6 mg PO SUMOWEFR 07/11/17 [History] Warfarin [Coumadin] 4 mg PO TUTHSA 07/11/17 [History] Amiodarone [Cordarone] 200 mg PO BID 30 Days 07/16/17 [Rx] Lisinopril [Zestril] 20 mg PO DAILY #30 07/16/17 [Rx] Simvastatin [Zocor] 20 mg PO HS #30 07/16/17 [Rx] Allergies/Adverse Reactions: Allergies codeine Adverse Reaction (Verified 07/11/17 16:37) [place]ushing Procedures/tests Complete & Pending: Procedures Performed prior 72 hours Category Date Time Status CL Cardioversion [CL] Routine Knife Finisher 07/15/17 08:00 Completed EV echocardiogram Routine Y 07/15/17 13:47 Completed Date of admission: 07/12/17 11:03 Primary care physician: Romero Cameron MD Consults: 07/12/17 11:55 Consult to Electrophysiology (EP) [CONS] Routine Consulting Provider: Electrophysiology Mitzi Reason for Consult: A flutter and A fib going into SVT with decreased EF. Time Notified: 11:56 Call Completed: Yes Anticipated date of discharge: 07/16/17 - Patient Status Disposition: Home Health Service Condition: Good Overall status at discharge: patient is progressing back to baseline - Discharge Instructions Instructions: Lisinopril (By mouth), Amiodarone (By mouth), Simvastatin (By mouth) Follow Up With: Wade Ceja MD [Partnered Physician] - (Cardiology will call patient at home with appointment.) Romero Cameron MD [Primary Care Provider] - 07/19/17 8:30 am - Diet and Activity Activity: increase activity as tolerated Diet: low fat, low cholesterol Hospital course: Ms. Alvarenga is a 72 year old female with past medical history of atrial fibrillation, DVT status post IVC filter, nonobstructive coronary artery disease , Scywh-Drfaqosoz-Rhapl syndrome status post ablation, history of mitral valve repair with annuloplasty and left atrial appendage ligation, Intra-Op ablation for atypical atrial flutter and status post multiple cardioversion currently on Coumadin. He presented to the ED for tachycardia and palpitations. Patient also had shortness of breath and lightheadedness denied chest pain or syncope or edema. Patient was initially given adenosine in the ED. Heart rate then stabilized. She was then started on Cardizem drip. Her home medications were continued. Her INR has been therapeutic during her stay in the hospital. Cardiology evaluated the patient. Amiodarone was started. Patient underwent DC cardioversion. She is now in sinus rhythm. Patient does have bradycardia so her metoprolol has been discontinued. She will be continued on amiodarone. Repeat echocardiogram after cardioversion shows EF 35-40%. Advised to continue Coumadin. Stop beta carlos due to bradycardia, but continue WILMAN inhibitor. Patient did not have any other acute events or complications during her stay in the hospital. She is tolerating oral diet well and needs some assistance with ambulation. Patient has been explained about her condition and plan of care in detail. She understood and agreed. No unanswered questions. No family members at the time discharge. Patient has been advised to follow up with cardiology regularly and to follow up with her primary care physician. Patient is being discharged in stable condition. - Time Spent with Patient Total time spent providing and/or coordinating discharge services: Greater than 30 minutes - Constitutional Vitals: Temp Pulse Resp BP Pulse Ox 97.6 F 63 16 155/89 97 07/16/17 11:29 07/16/17 11:29 07/16/17 11:29 07/16/17 11:29 07/16/17 11:29 General appearance: Present: cooperative, A&O X 3, pleasant, no acute distress, answers questions appropriately - Head Head exam: Present: atraumatic - Eye Eye exam: Present: EOMI - ENT ENT exam: Present: mucous membranes moist - Respiratory Respiratory exam: Present: CTAB. Absent: rales, rhonchi, wheezes, tachypnea - Cardiovascular Cardiovascular exam: Present: bradycardia (Regular rhythm), +S1, +S2, systolic murmur - GI/Abdominal GI/Abdominal exam: Present: soft. Absent: distended, firm, guarding, tenderness - Extremities Exam Extremities exam: Present: radial pulses palpable and symmetrical. Absent: cyanotic, pedal edema - Neurological Exam Neurological exam: Present: alert, oriented X3, no focal deficits
--- NOTE | 2017-07-16 12:19 | Physician Discharge Referral ---
Home Health/Hosp Referral Info Transfer to: Home Health Provider in Charge Post Discharge: PCP - Diagnosis (1) Atrial flutter with rapid ventricular response Priority: Primary Status: Resolved (2) Non-ischemic cardiomyopathy Priority: Primary Status: Chronic (3) History of mitral valve repair Priority: Secondary Status: Chronic (4) H/O radiofrequency ablation for complex left atrial arrhythmia Priority: Secondary Status: Chronic (5) Hyperlipidemia Priority: Secondary Status: Chronic (6) History of DVT (deep vein thrombosis) Priority: Secondary Status: Chronic - Respiratory Orders Smoking Cessation: Smoking cessation has been advised. For more information, call the [place] Tobacco Quit Line at 2-392-YGZK-NOW. - Diet/Nutrition Diet/Nutrition Orders: Cardiac - Activity Activity Orders: Walker - Services Needed Following services are medically necessary services: Home Health Aide, Physical Therapy - Transfer Medications Prescriptions: Amiodarone [Cordarone] 200 mg PO BID 30 Days Lisinopril [Zestril] 20 mg PO DAILY #30 Simvastatin [Zocor] 20 mg PO HS #30 Home Medications: Aspirin [Lo-Dose Aspirin EC] 81 mg PO DAILY 05/16/17 [History] Cholecalciferol (Vitamin D3) [Vitamin D3] 2,000 unit PO DAILY 05/16/17 [History] Magnesium Oxide [Magnesium] 500 mg PO DAILY 05/16/17 [History] Multivitamin [Multivitamins] 1 tab PO 3XW 05/16/17 [History] Warfarin Sodium [Coumadin] 6 mg PO SUMOWEFR 07/11/17 [History] Warfarin [Coumadin] 4 mg PO TUTHSA 07/11/17 [History] Amiodarone [Cordarone] 200 mg PO BID 30 Days 07/16/17 [Rx] Lisinopril [Zestril] 20 mg PO DAILY #30 07/16/17 [Rx] Simvastatin [Zocor] 20 mg PO HS #30 07/16/17 [Rx] Allergies/Adverse Reactions: Allergies codeine Adverse Reaction (Verified 07/11/17 16:37) [place] Certification: Further, I certify that my clinical findings support that this patient is homebound (i.e. absences from home require considerable and taxing effort and are for medical reasons or [facility] or infrequently or short duration when for other reasons) because: Homebound Reason: Patient requires assistance of a person or device to safely leave home Attestation: My signature below is to certify that this patient is under my care and that I, or nurse practitioner, or a physician's drafter assistant working with me, has a face-to -face encounter with this patient.
[2017-07-16] MEDS ORDERED: *HR* Amiodarone 200 MG TABLET PO SCH (21:00)
--- NOTE | 2017-07-17 13:52 | Electrocardiograph Report ---
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
== END 2017-07-16 13:32 | disposition home health service (06) | DRG 309 ==
LOC: EMEROO 15:52 → 2NENU 15:52 → 2NNU 20:24
PROVIDERS: ADMIT Internal Medicine Endocrinology, Diabetes & Metabolism; ATTEND Internal Medicine

== ENCOUNTER 2019-09-23 10:08 | Inpatient (IN) ==
[2019-09-23] MEDS ORDERED: Aspirin 325 MG TABLET PO ONE (10:18)
[2019-09-23 10:46] LABS: Basophils % 0.3 %; Eosinophils # 0.1 K/mcL (0.0-0.6); Eosinophils % 0.6 %; Hematocrit 49.1 % (35.3-44.9); Hemoglobin 16.6 g/dL (11.5-15.4); Immature Granulocytes % 0.3 % (0-4); Lymphocytes # 2.1 K/mcL (0.6-4.6); Lymphocytes % 25.9 %; Mean Corpuscular HGB Conc 33.8 g/dL (31.6-35.5); Mean Corpuscular Hemoglobin 30.1 pg (28.0-33.3); Mean Corpuscular Volume 89.1 fL (83.0-100.0); Mean Platelet Volume 10.6 fL (9.4-12.4); Monocytes # 0.6 K/mcL (0.0-1.3); Monocytes % 7.9 %; Neutrophils # 5.2 K/mcL (1.6-8.9); Platelet Count 185 K/mcL (140-400); Red Blood Count 5.51 M/mcL (3.82-4.97); Red Cell Distribution Width 13.8 % (11.5-14.5)
[2019-09-23 10:57] LABS: INR 1.4; Prothrombin Time 15.4 Seconds (9.4-12.1)
[2019-09-23 10:59] LABS: Activated Partial Thrombo Time 39.5 Seconds (26.0-36.0)
[2019-09-23 11:10] LABS: Troponin I < 0.03 ng/mL (< 0.04)
[2019-09-23] MEDS ORDERED: Naloxone 0.4 MG/ML INJ IVP PRN (11:20)
[2019-09-23] MEDS ORDERED: *HR* Metoprolol 5 MG/5 ML VIAL IVP PRN (11:22)
[2019-09-23 11:23] LABS: BUN/Creatinine Ratio 16 (6-26); Blood Urea Nitrogen 17 mg/dL (8-23); Calcium 9.9 mg/dL (8.6-10.3); Carbon Dioxide 20 mEq/L (23-29); Chloride 107 mEq/L (98-107); Glucose 107 mg/dL (70-105); Osmolality,Calculated 286 (280-300); Sodium 137 mEq/L (136-145); Thyroid Stimulating Hormone 1.572 mcIU/mL (0.340-5.600); eGFR For African Americans > 60 (> 60); eGFR For Non-African Americans 51 (> 60)
[2019-09-23] MEDS ORDERED: Nitroglycerin 0.4 MG TAB.SUBL SL PRN (11:24)
[2019-09-23] MEDS ORDERED: *HR* Warfarin 4 MG TABLET PO ONE (18:00)
[2019-09-23] MEDS: Warfarin perPT PO SCH (18:27)
[2019-09-24 06:33] LABS: Basophils % 0.3 %; Eosinophils # 0.1 K/mcL (0.0-0.6); Eosinophils % 1.1 %; Hematocrit 48.6 % (35.3-44.9); Hemoglobin 15.9 g/dL (11.5-15.4); Immature Granulocytes % 0.2 % (0-4); Lymphocytes % 32.3 %; Mean Corpuscular HGB Conc 32.7 g/dL (31.6-35.5); Mean Corpuscular Hemoglobin 30.1 pg (28.0-33.3); Mean Platelet Volume 10.4 fL (9.4-12.4); Monocytes # 0.6 K/mcL (0.0-1.3); Monocytes % 9.2 %; Neutrophils # 3.6 K/mcL (1.6-8.9); Platelet Count 167 K/mcL (140-400); Red Blood Count 5.28 M/mcL (3.82-4.97); Red Cell Distribution Width 13.9 % (11.5-14.5); Segmented Neutrophils % 56.9 %; White Blood Count 6.3 K/mcL (4.3-11.1)
[2019-09-24 06:43] LABS: INR 1.6
[2019-09-24] MEDS ORDERED: *HR* Heparin 5,000 UNIT/ML VIAL IVP ONE (08:11)
[2019-09-24] MEDS ORDERED: *HR* Heparin 5,000 UNIT/ML VIAL IVP PRN ×4 (08:11→19:46)
[2019-09-24] MEDS ORDERED: Heparin 25,000 UNIT/250 ML D5W 25,000 UNIT/250 ML IV.SOLN IVC SCH (08:15)
[2019-09-24] MEDS ORDERED: Aspirin Enteric Coated 81 MG Tablet PO SCH (09:00)
[2019-09-24] MEDS ORDERED: Lisinopril 20 MG TABLET PO SCH (09:00)
[2019-09-24] MEDS ORDERED: Spironolactone 25 MG TABLET PO SCH (09:00)
[2019-09-24] MEDS ORDERED: Metoprolol XL (24 HR) Succ 50 MG TAB.ER.24H PO SCH (09:00)
[2019-09-24 09:11] LABS: Hematocrit 48.8 % (35.3-44.9); Hemoglobin 16.7 g/dL (11.5-15.4); Mean Corpuscular HGB Conc 34.2 g/dL (31.6-35.5); Mean Corpuscular Hemoglobin 30.2 pg (28.0-33.3); Mean Corpuscular Volume 88.2 fL (83.0-100.0); Mean Platelet Volume 10.6 fL (9.4-12.4); Platelet Count 191 K/mcL (140-400); Red Blood Count 5.53 M/mcL (3.82-4.97); Red Cell Distribution Width 13.8 % (11.5-14.5); White Blood Count 7.8 K/mcL (4.3-11.1)
[2019-09-24 09:24] LABS: INR 1.5; Prothrombin Time 17.3 Seconds (9.4-12.1)
[2019-09-24] MEDS ORDERED: Amiodarone Premix 360 MG/200 ML BAG IVC ONE ×2 (11:12→19:46)
[2019-09-24 13:06] LABS: Bilirubin,Urine Negative (Negative); Blood,Urine Negative (Negative); Clarity,Urine Clear (Clear); Color,Urine Yellow (Yellow); Glucose,Urine (UA) Normal (Normal); Ketones,Urine Negative (Negative); Leukocyte Esterase,Urine Negative (Negative); Nitrite,Urine Negative (Negative); Protein,Urine Negative (Neg-Trace); Urobilinogen,Urine Normal (Normal)
[2019-09-24] MEDS ORDERED: Amiodarone Premix 360 MG/200 ML BAG IVC SCH ×2 (17:30→19:46)
[2019-09-24] MEDS ORDERED: *HR* Warfarin 4 MG TABLET PO ONE (18:00)
[2019-09-24] MEDS: Warfarin perPT PO SCH (18:02)
[2019-09-24] MEDS ORDERED: *HR* Metoprolol 5 MG/5 ML VIAL IVP PRN (19:46)
[2019-09-24] MEDS ORDERED: Naloxone 0.4 MG/ML INJ IVP PRN (19:46)
[2019-09-24] MEDS ORDERED: Nitroglycerin 0.4 MG TAB.SUBL SL PRN (19:46)
[2019-09-24] MEDS: Heparin 25,000 UNIT/250 ML D5W 25,000 UNIT/250 ML IV.SOLN IVC SCH (20:38)
[2019-09-25 02:08] LABS: INR 1.8; Prothrombin Time 20.6 Seconds (9.4-12.1)
[2019-09-25] MEDS: Heparin 25,000 UNIT/250 ML D5W 25,000 UNIT/250 ML IV.SOLN IVC SCH (02:17)
[2019-09-25] MEDS: Lisinopril 20 MG TABLET PO SCH (07:32)
[2019-09-25] MEDS: Metoprolol XL (24 HR) Succ 50 MG TAB.ER.24H PO SCH (07:32)
[2019-09-25] MEDS: Aspirin Enteric Coated 81 MG Tablet PO SCH (07:32)
[2019-09-25] MEDS: Spironolactone 25 MG TABLET PO SCH (07:32)
[2019-09-25 08:31] LABS: Hematocrit 46.7 % (35.3-44.9); Mean Corpuscular HGB Conc 34.3 g/dL (31.6-35.5); Mean Corpuscular Hemoglobin 30.7 pg (28.0-33.3); Mean Corpuscular Volume 89.6 fL (83.0-100.0); Mean Platelet Volume 10.7 fL (9.4-12.4); Platelet Count 159 K/mcL (140-400); Red Blood Count 5.21 M/mcL (3.82-4.97); White Blood Count 7.3 K/mcL (4.3-11.1)
[2019-09-25 08:42] LABS: BUN/Creatinine Ratio 14 (6-26); Blood Urea Nitrogen 13 mg/dL (8-23); Calcium 9.5 mg/dL (8.6-10.3); Carbon Dioxide 24 mEq/L (23-29); Chloride 105 mEq/L (98-107); Glucose 116 mg/dL (70-105); Osmolality,Calculated 289 (280-300); Potassium 3.9 mEq/L (3.5-5.1); Sodium 139 mEq/L (136-145); eGFR For African Americans > 60 (> 60); eGFR For Non-African Americans 60 (> 60)
[2019-09-25] MEDS ORDERED: Metoprolol XL (24 HR) Succ 50 MG TAB.ER.24H PO SCH ×2 (09:00)
[2019-09-25] MEDS ORDERED: Multivit/Ca/Min/Fe/FA 1 TAB TABLET PO SCH ×2 (09:00)
[2019-09-25] MEDS: *HR* Amiodarone 200 MG TABLET PO SCH ×2 (10:04→21:02)
[2019-09-25] MEDS ORDERED: Warfarin perPT PO SCH (18:00)
[2019-09-25] MEDS ORDERED: *HR* Warfarin 4 MG TABLET PO ONE (18:00)
[2019-09-26 03:45] LABS: Hematocrit 44.1 % (35.3-44.9); Hemoglobin 15.1 g/dL (11.5-15.4); Mean Corpuscular HGB Conc 34.2 g/dL (31.6-35.5); Mean Corpuscular Hemoglobin 30.4 pg (28.0-33.3); Mean Corpuscular Volume 88.7 fL (83.0-100.0); Mean Platelet Volume 10.7 fL (9.4-12.4); Platelet Count 163 K/mcL (140-400); Red Blood Count 4.97 M/mcL (3.82-4.97); Red Cell Distribution Width 14.1 % (11.5-14.5); White Blood Count 7.9 K/mcL (4.3-11.1)
[2019-09-26 03:48] LABS: Heparin anti-factor XA UFH 0.82 IU/mL (0.30-0.70); INR 2.2; Prothrombin Time 25.2 Seconds (9.4-12.1)
[2019-09-26 04:03] LABS: BUN/Creatinine Ratio 15 (6-26); Blood Urea Nitrogen 15 mg/dL (8-23); Calcium 9.2 mg/dL (8.6-10.3); Carbon Dioxide 23 mEq/L (23-29); Chloride 106 mEq/L (98-107); Glucose 116 mg/dL (70-105); Osmolality,Calculated 284 (280-300); Potassium 4.1 mEq/L (3.5-5.1); Sodium 136 mEq/L (136-145); eGFR For African Americans > 60 (> 60); eGFR For Non-African Americans 56 (> 60)
[2019-09-26] MEDS: Heparin 25,000 UNIT/250 ML D5W 25,000 UNIT/250 ML IV.SOLN IVC SCH (05:45)
[2019-09-26 07:23] VITALS: BP 136/72
[2019-09-26] MEDS: Spironolactone 25 MG TABLET PO SCH (07:24)
[2019-09-26] MEDS: Metoprolol XL (24 HR) Succ 50 MG TAB.ER.24H PO SCH (07:24)
[2019-09-26] MEDS: Aspirin Enteric Coated 81 MG Tablet PO SCH (07:24)
[2019-09-26] MEDS: *HR* Amiodarone 200 MG TABLET PO SCH (07:24)
[2019-09-26] MEDS: Lisinopril 20 MG TABLET PO SCH (07:24)
== END 2019-09-26 16:46 | disposition home or self-care (01) | DRG 310 ==
LOC: EMEROOARM 10:08 → 3BNU 10:08 → SUATTDRO 09-24 11:30 → 2NNU 09-24 19:42
PROVIDERS: ADMIT Student in an Organized Health Care Education/Training Program; ATTEND Family Medicine